=== PATIENT | female | born 1985 | race Caucasian/White ===

== ENCOUNTER → 2025-01-06 | Outpatient (CLI) | payer OTHER, SELFPAY ==
--- NOTE | 2025-01-06 18:11 | CT_ITS ---
PROCEDURE: ABDOMEN/PELVIS WITHOUT CONT 01/06/2025 REASON FOR EXAM: FLANK PAIN, STONE HISTORY Right flank pain. TECHNIQUE: Procedure Code: CTABDPEL Modality: CT Procedure: ABDOMEN/PELVIS WITHOUT CONT Noncontrast technique limits evaluation of the abdominal and pelvic viscera. Coronal and Sagittal reconstruction series were provided. One or more dose reduction techniques were used (e.g., Automated exposure control, adjustment of the mA and/or kV according to patient size, use of iterative reconstruction technique). RADIATION DOSE SUMMARY: CTDlvol: 6.04 mGy DLP: 291.44 mGycm COMPARISON: None FINDINGS: Lung bases: The lung bases are clear. Liver: Normal size. No obvious mass. Gallbladder: Unremarkable Spleen: Normal size. Pancreas: Normal size. No surrounding inflammation. Adrenals: Unremarkable Kidneys: 5 mm x 1 mm calculus in the lower pole calyx of the left kidney. Punctate calculus in the upper pole calyx of the left kidney. No evidence of hydronephrosis. Bladder: Unremarkable Reproductive Organs: Normal uterine size and contour. Ovaries are unremarkable. Bowel: Unremarkable Appendix: Unremarkable Lymph nodes: Unremarkable. Vasculature: The abdominal aorta and IVC contours are normal. Noncontrast technique limits evaluation. Peritoneum / Retroperitoneum: Unremarkable Bones: Unremarkable CT/Abdomen/Pelvis without Cont IMPRESSION: Tiny nonobstructive calculus in the lower pole of the left kidney as well as in the upper pole. No evidence of the ureteral obstruction at this time. Reading Location: [place] [id number]
--- OUTSIDE RECORDS SUMMARY | 2025-01-06 18:15 | XMS RPT_ITS | CCD ---
Author Organization [facility] CAR RECORD CLERK [facility] Care Team Providers Care Torch Operator Name Role Phone Unavailable Primary Care Provider Unavailabl e LISSA NAIK Attending Unavailable LISSA NAIK Admitting Unavailable APIRL SAMSON Attending Unavailable FELI HOWARD Admitting Unavailable YARELIS CHRISTOPHER Attending Unavailable EKMAN, YEIMY Referring Unavailable EKMAN, YEIMY Attending Unavailable EKMAN, YEIMY Referring Unavailable EKMAN, YEIMY Attending Unavailable EKMAN, YEIMY Attending Unavailable EKMAN, YEIMY Attending Unavailable EKMAN, YEIMY Attending Unavailable EKMAN, YEIMY Attending Unavailable EKMAN, YEIMY Attending Unavailable EKMAN, YEIMY Attending Unavailable EKMAN, YEIMY Attending Unavailable EKMAN, YEIMY Referring Unavailable EKMAN, YEIMY Attending Unavailable EKMAN, YEIMY Attending Unavailable EKMAN, YEIMY Referring Unavailable EKMAN, YEIMY Referring Unavailable EKMAN, YEIMY Referring Unavailable EKMAN, YEIMY Referring Unavailable EKMAN, YEIMY Attending Unavailable EKMAN, YEIMY Attending Unavailable Keke DEVLIN, Dr. Sanchez Attending Physician Dr. Marcello Mejia MD Primary Care Physician [phone] Dr. Marcello Mejia MD Referring Provider Marcello Mejia Referring Unavailable Marcello Mejia Primary Care Unavailable Laura Davies Attending Unavailable Tiara Sigala Attending Unavailabl e Allergies Allergy Classification Reported Allergen(s) Allergy Type Date of Onset Reaction(s) Facility (19 sources) Sulfonamides (Antibiotic); Translations: [SULFA (SULFONAMIDE ANTIBIOTICS)] Drug Allergy 8 Rash, Swelling [facility] (1 source) Sulfonamides (Antibiotic) Allergy to substance 5 facial swelling and rash [facility] (1 source) Sulfonamides (Antibiotic) Drug allergy (disorder) [facility] Repository Medications Current Medications Medication Drug Class(es) Dates Sig (Normalized) Sig (Original) Breast Pump (11 sources) Start: 12-25-2022 End: 12-25-2023 Breast Pump Double electric breast pump 1 Each 0 12/25/2022 12/25/2023 Active Comment on above: Double electric becca st pump pantoprazole 40 mg delayed release oral tablet (18 sources) Proton Pump Inhibitor Start: 12-23-2024 take 1 tablet by mouth once daily Pantoprazole 40 mg tablet,delayed release (DR/EC) Active 40 mg PO daily December 23, 2024 12:00am Complies with drug therapy Start: 12-31-2022 End: 05-01-2023 take 1 tablet by mouth once daily pantoprazole DR (PROTONIX) 20 mg tablet TAKE 1 TABLET BY MOUTH EVERY DAY 90 tablet 1 12/31/2022 05/01/2023 Discontinued Start: 12-01-2022 take 1 tablet by jose th once daily pantoprazole DR (PROTONIX) 20 mg tablet Take 1 tablet by mouth once daily. 30 tablet 2 12/04/2022 Active Start: 08-16-2022 End: 11-29-[address] (PROTONIX) 2 0 mg tablet Comment on above: Take 1 tablet by jose th once daily. TAKE 1 TABLET BY JOSE TH EVERY DAY Completed/Discontinued Medications Medication Drug Class(es) Dates Sig (Normalized) Sig (Original) ascorbic acid 250 mg oral tablet (10 sources) Vitamin C Start: 12-27-2022 End: 05-01-2023 take 1 tablet by mouth once daily ascorbic acid, vitamin C, (VITAMIN C) 250 mg tablet Take 1 tablet by mouth once daily. 100 tablet 1 12/27/2022 05/01/2023 Discontinued Comment on above: Take 1 tablet by jose th once daily. aspirin 81 mg delayed release oral tablet (16 sources) Platelet Aggregation Inhibitor, Nonsteroidal Anti-inflammatory Drug Start: 09-26-2022 take 1 tablet by mouth once daily aspirin, enteric coated (ECOTRIN LOW STRENGTH) 81 mg EC tablet Take 1 tablet by mouth once daily. 90 tablet 3 09/26/2022 Active Comment on above: Take 1 tablet by jose th once daily. ferrous sulfate 325 mg oral tablet (10 sources) Start: 12-27-2022 End: 05-01-2023 take 1 tablet by mouth twice daily ferrous sulfate (IRON) 325 mg (65 mg iron) tablet Take 1 tablet by mouth two times a day. 60 tablet 3 12/27/2022 05/01/2023 Discontinued Comment on above: Take 1 tablet by jose th two times a day. nitrofurantoin, macrocrystals 25 mg / nitrofurantoin, monohydrate 75 mg oral capsule (19 sources) Nitrofuran Antibacterial Start: 12-01-2022 End: 12-01-2022 nitrofurantoin monohydrate and macrocrystal (MACROBID) 100 mg capsule Take a single tablet following intercourse for prevention of urinary tract infection 30 capsule 2 12/01/2022 Active Start: 05-04-2022 End: 11-29-2022 nitrofurantoin monohydrate a nd macrocrystal (MACROBID) 100 mg capsule Take a single tablet following intercourse for prevention of urinary tract infection 0 05/04/2022 11/29/2022 Discontinued Comment on above: Take a single tablet following intercourse for prevention of urinary tract infection PNV no.95/ferrous fum/folic ac ( ORAL) (17 sources) PNV no.95/ferrou s fum/folic ac ( ORAL) Take by mouth. 0 Active Comment on above: Take by mouth. Problems Active Problems Problem Classification Problem Date Documented Da te Episodic/Chronic Calculus of urinary tract (2 sources) Kidney stone; Translations: [Calculus of kidney] Onset: 12-23-2024 12-23-2024 Episodic Early or threatened labor (8 sources) False labor before 37 completed weeks of gestation; Translations: [False labor before 37 completed weeks of gestation, third trimester] Onset: 01-26-2023 01-27-2023 Episodic Immunizations and screening for infectious disease (1 source) Needs influenza immunization; Translations: [Encounter for immunization] 12-25-2022 Episodic Other complications of (9 sources) Anemia of ; Translations: [Anemia complicating , third trimester] Onset: 01-15-2023 01-15-2023 Chronic Other complications of (1 source) Uterine size for dates discrepancy; Translations: [Uterine size-date discrepancy, third trimester] 01-29-2023 Episodic Other screening for suspected conditions (not mental disorders or infectious disease) (3 sources) Patient encounter status; Translations: [Encounter for other specified screening] 10-24-2022 Episodic Residual codes; unclassified (2 sources) Gestation period, 18 weeks; Translations: [18 weeks gestation of ] 10-24-2022 Episodic Residual codes; unclassified (1 source) Gestation period, 22 weeks; Translations: [22 weeks gestation of ] 11-19-2022 Episodic Residual codes; unclassified (1 source) Gestation period, 27 weeks; Translations: [27 weeks gestation of ] 12-25-2022 Episodic Residual codes; unclassified (5 sources) Gestation period, 32 weeks; Translations: [32 weeks gestation of ] Onset: 01-27-2023 01-29-2023 Episodic Residual codes; unclassified (1 source) Gestation period, 34 weeks; Translations: [34 weeks gestation of ] 02-12-2023 Episodic Residual codes; unclassified (1 source) Gestation period, 36 weeks; Translations: [36 weeks gestation of ] 02-26-2023 Episodic Residual codes; unclassified (1 source) 38 weeks gestation of ; Translations: [38 weeks gestation of ] Onset: 03-12-2023 Episodic Residual codes; unclassified (1 source) 36 weeks gestation of ; Translations: [36 weeks gestation of ] Onset: 02-26-2023 Episodic Residual codes; unclassified (1 source) 34 weeks gestation of ; Translations: [34 weeks gestation of ] Onset: 02-13-2023 Episodic Unclassified (1 source) Routine Onset: 05-01-2023 Past or Other Problems Problem Classification Problem Date Documented Da te Episodic/Chronic Other complications of (20 sources) High risk ; Translations: [Supervision of high risk , unspecified, second trimester] Onset: 09-26-2022 Episodic Other complications of (17 sources) Multigravida of advanced maternal age; Translations: [Supervision of elderly multigravida, second trimester] Onset: 09-26-2022 09-26-2022 Episodic Other complications of (2 sources) Supervision of high risk , unspecified, third trimester; Translations: [Supervision of high risk in third trimester] Onset: 01-29-2023 Episodic Other complications of (1 source) Supervision of high risk , unspecified, second trimester; Translations: [Supervision of high risk in second trimester] Onset: 09-26-2022 Episodic Residual codes; unclassified (1 source) 32 weeks gestation of ; Translations: [32 weeks gestation of ] Onset: 01-27-2023 Episodic Residual codes; unclassified (1 source) 22 weeks gestation of ; Translations: [22 weeks gestation of ] Onset: 12-25-2022 Episodic Residual codes; unclassified (1 source) 18 weeks gestation of ; Translations: [18 weeks gestation of ] Onset: 10-24-2022 Episodic Results Test Name Value Interpretation Reference Range Facil ity CNCOon 05-13-2023 CNCO Letter Text Normal [facility] HPV W/GENOTYPE THIN PREPon 0 05-01-2023 HPV 16 Ag Ql (Unsp spec) Negative Normal Negative for HPV DNA high risk type 16 by PCR [facility] Comment on above: Order Comment: Speci men Type: FLUID SPECIMEN Ordering Facility: [facility] Address: [address] [place] [address] Performed By: #### L [id number], HPVHRT #### [facility] CLIA [id number] [address] [place] [address] [place] HPV 18 Ag Ql (Unsp spec) Negative Normal Negative for HPV DNA high risk type 18 by PCR [facility] Comment on above: Order Comment: Speci men Type: FLUID SPECIMEN Ordering Facility: [facility] Address: [address] [place] [address] Performed By: #### L [id number], HPVHRT #### [facility] CLIA [id number] [address] [place] [address] [place] HPV 31+33+35+39+45+51+5 2+56+58+59+66+68 DNA DIGNA+probe Ql (Cvx) Negative for HPV DNA high risk types: 31,33,35,39,45,51,52, 56,58,59,66,68 by PCR. Normal Negative for HPV DNA high risk types: 31,33,35,39,45,51 ,52,56,58,59,66,6 8 by PCR. [facility] Comment on above: Order Comment: Speci men Type: FLUID SPECIMEN Ordering Facility: [facility] Address: [address] [place] [address] Performed By: #### L [id number], HPVHRT #### [facility] CLIA [id number] [address] [place] [address] [place] PAP TESTon 05-01-2023 ADEQUACY Satisfactory for interpretation Normal [facility] Comment on above: Order Comment: Speci men Type: FLUID SPECIMEN Ordering Facility: [facility] Address: [address] [place] [address] Performed By: #### L [id number], HPVHRT #### [facility] CLIA [id number] [address] [place] [address] [place] CASE REPORT Normal [facility] Comment on above: Order Comment: Speci men Type: FLUID SPECIMEN Ordering Facility: [facility] Address: [address] [place] [address] Result Comment: Gyne cologic Cytology Report Case: [id number] Authorizing Provider: Yeimy Sy MD Collected: 05/01/2023 11:09 AM Ordering Location: Obstetrics/Gynecology Received: 05/01/2023 04:17 PM First Screen: Mimi, Melina, CT, ASCP Specimen: Pap Test, ThinPrep, Cervix Performed By: #### L [id number], HPVHRT #### [facility] CLIA [id number] [address] [place] [address] [place] CLINICAL HISTORY, CYTOLOGY, CYBER DEFENSE INCIDENT RESPONDER Post (Indicate Weeks) Normal [facility] Comment on above: Order Comment: Speci men Type: FLUID SPECIMEN Ordering Facility: [facility] Address: [address] [place] [address] Performed By: #### L [id number], HPVHRT #### [facility] CLIA [id number] [address] [place] [address] [place] FINAL PERFORMING LAB Normal [facility] Comment on above: Order Comment: Speci men Type: FLUID SPECIMEN Ordering Facility: [facility] Address: [address] [place] [address] Result Comment: Tech nical component, electric razor assembler screening performed at [facility], [address] [place], [place] [id number] CLIA# [id number] Diagnostic interpretation performed at [facility], [address] [place], [place] [id number] CLIA# [id number] Research Microbiologist: Robert Hines M.D. Performed By: #### L [id number], HPVHRT #### [facility] CLIA [id number] [address] [place] [address] [place] HPV REFLEX Yes HPV Normal [facility] Comment on above: Order Comment: Speci men Type: FLUID SPECIMEN Ordering Facility: [facility] Address: [address] [place] [address] Performed By: #### L [id number], HPVHRT #### [facility] CLIA [id number] [address] [place] [address] [place] INTERPRETATION, CYTOLOGY, CYBER DEFENSE INCIDENT RESPONDER Normal [facility] Comment on above: Order Comment: Speci men Type: FLUID SPECIMEN Ordering Facility: [facility] Address: [address] [place] [address] Result Comment: Nega tive for intraepithelial lesion or malignancy. Performed By: #### L [id number], HPVHRT #### [facility] CLIA [id number] [address] [place] [address] [place] LMP 05/01/2023[breast feeding, no period Normal [facility] Comment on above: Order Comment: Speci men Type: FLUID SPECIMEN Ordering Facility: [facility] Address: [address] [place] [address] Performed By: #### L [id number], HPVHRT #### [facility] CLIA [id number] [address] [place] [address] [place] PAP DISCLAIMER COMMENT The Pap Smear is a screening test for cervical cancer. False negative results occur with all screening tests, emphasizing the need for rescreening at recommended intervals, and clinical correlation. Normal [facility] Comment on above: Order Comment: Speci men Type: FLUID SPECIMEN Ordering Facility: [facility] Address: [address] [place] [address] Performed By: #### L [id number], HPVHRT #### [facility] CLIA [id number] [address] [place] [address] [place] PAP PROGRAMMING ENGINEER COMMENT This specimen has been analyzed by the ThinPrep Imaging System, an automated imaging and review system, which assists the laboratory in evaluating cells on ThinPrep Pap tests. Following automated imaging, selected rivera from every slide are reviewed by a electric razor assembler. Normal [facility] Comment on above: Order Comment: Speci men Type: FLUID SPECIMEN Ordering Facility: [facility] Address: [address] [place] [address] Performed By: #### L [id number], HPVHRT #### [facility] CLIA [id number] [address] [place] [address] [place] ANES POSTPROC EVALon 023 ANES POSTPROC EVAL HNO ID: [id number] Author: Bhavana Vail MD Service: Anesthesiology Author Type: Anesthesiologist Type: Anesthesia Postprocedure Evaluation Filed: 03/24/2023 1:47 PM Note Text: POST ANESTHESIA EVALUATION NOTE : 1985 Procedure Summary Date: 03/23/23 Room / Location: Anesthesia Start: 2303 Anesthesia Stop: 2350 Procedure: LABOR ANALGESIA Diagnosis: Scheduled Providers: Responsible Provider: Ana Deshpande MD Anesthesia Type: epidural ASA Status: 2 Anesthesia Type: No value filed. Last Vitals BP 105/67 Pulse 85 Temp 36.7 ?C (98.1 ?F) (Oral) Resp 16 Ht 160 cm (5' 3") Wt 75.3 kg (166 lb) LMP 06/16/2022 SpO2 96% Unknown BMI 29.41 kg/m? Jerald Frias [[id number]] Baby Delivery: 03/23/2023 2350 Post Anesthesia Patient Status Neurological Status: aware and responsive. Pulmonary Status: breathing comfortably on room air Airway Control: returned to baseline unsupported. Cardiovascular Status: stable. Pain Management: clinically adequate Postoperative Hydration: acceptable. Intraoperative Events: no significant anesthesia events Recommendation: continue current plan of care. Anesthesia Observations No Documentation SIGNATURE: Bhavana Vail MD PATIENT NAME: Marina Frias DATE: March 24, 2023 TIME: 1:46 PM CSN: [id number] [facility] ANES PRE-OPon 03-24-2023 ANES PRE-OP HNO ID: [id number] Author: Bhavana Vail MD Service: Anesthesiology Author Type: Anesthesiologist Type: Anesthesia Preprocedure Evaluation Filed: 03/24/2023 1:47 PM Note Text: OB ANESTHESIA PRE-PROCEDURE ASSESSMENT PATIENT NAME: Marina Frias : 1985 Marina Frias is a 37 yo at 40w0d presenting for elective induction of labor. Denies history of Asthma or HTN. Denies PPH with first , Desires epidural. [facility] ANES INVESTIGATOR: Previous OB anesthetic: Epidural No OB anesthesia considerations No prior risk factors reported No current obstetric problems/important considerations GERD: GERD well controlled with no positional symptoms Relevant Problems No relevant active problems I - PHYSICAL EVALUATION AIRWAY Patient intubated: No. Tracheostomy tube not present Mallampati: III. TM distance: >3 FB. Neck ROM: full ROM without neurological symptoms. Mouth opening: adequate. Short neck: no. Thick neck: no Heredia present: no II - ANESTHESIA PLAN ASA Score: 2 Anesthetic Plan: epidural The patient is not a current smoker. Beta [place] Monitoring Plan Monitoring plan: standard ASA. Post Procedure Analgesic Plan Informed Consent Anesthetic risks, benefits, alternatives, personnel and consent discussed: yes. Patient / Responsible Republican agrees to proceed: yes Patient / Surrogate agrees to blood products: Yes EPIC CHART REVIEW: ACTIVE PROBLEM LIST Supervision of High Risk in Second Trimester [place] (Advanced Maternal Age) Multigravida 35+, Second Trimester Anemia During in Third Trimester Threatened Labor, Third Trimester and Not Yet Delivered in Third Trimester PAST MEDICAL HISTORY Diagnosis Date - Kidney stone 06/23/2020 - hemorrhage PAST SURGICAL HISTORY Procedure Laterality Date - VAGINOSCOPY FAMILY HISTORY Problem Relation Age of Onset - Hypertension Father - Hypertension Maternal Grandmother - Hypertension Maternal Grandfather - Skin Cancer Paternal Grandfather Social History Tobacco Use - Smoking status: Never - Smokeless tobacco: Never Substance Use Topics - Alcohol use: Not Currently - Drug use: Never pantoprazole DR (PROTONIX) 20 mg tablet, TAKE 1 TABLET BY MOUTH EVERY DAY, Disp: 90 tablet, Rfl: 1, 03/23/2023 ferrous sulfate (IRON) 325 mg (65 mg iron) tablet, Take 1 tablet by mouth two times a day., Disp: 60 tablet, Rfl: 3 ascorbic acid, vitamin C, (VITAMIN C) 250 mg tablet, Take 1 tablet by mouth once daily., Disp: 100 tablet, Rfl: 1 Breast Pump, Double electric breast pump, Disp: 1 Each, Rfl: 0 nitrofurantoin monohydrate and macrocrystal (MACROBID) 100 mg capsule, Take a single tablet following intercourse for prevention of urinary tract infection, Disp: 30 capsule, Rfl: 2 PNV no.95/ferrous fum/folic ac ( ORAL), Take by mouth., Disp: , Rfl: aspirin, enteric coated (ECOTRIN LOW STRENGTH) 81 mg EC tablet, Take 1 tablet by mouth once daily. (Patient not taking: Reported on 01/15/2023), Disp: 90 tablet, Rfl: 3 Inpatient medications reviewed in [facility] I have interviewed and examined the patient. I have reviewed the medical record and/or the pre-anesthesia evaluation, pertinent labs, and test results. This contains updated information obtained within 48 hours of Surgery/Procedure. SIGNATURE: BRIELLE Sanches PATIENT NAME: Marina Frias DATE: March 23, 2023 TIME: 11:00 PM : 1985 [facility] LD NOTEon 03-24-2023 LD NOTE HNO ID: [id number] Author: LISSA NAIK DO Service: Obstetrics Author Type: Physician Type: L&D Delivery Note Filed: 04/21/2023 19:14 Note Text: OBSTETRICS DELIVERY SUMMARY - VAGINAL DELIVERY Gestational Age at Delivery: 40w0d Service Date: 03/23/2023 Service Time: 12:19 AM on 03/24/2023 for completion of delivery documentation as noted below Labor Events Rupture Date: 03/23/2023 Rupture Time: 10:48 PM Total Time from ROM to Delivery: 1h 02m Rupture Type: SROM Fluid Color: Clear;Meconium Fluid Odor: Foul Odor Induction: Yes Induction Method: Oxytocin Kavin Jerald Marina [[id number]] Episiotomy/Laceration : Episiotomy: None Lacerations: Labial Labial Lacerations: Left Labial Repair Completed: No Date and Time of : Date of : 03/23/23 Time of : 2349 Delivery Information: Primary Reason for Delivery : Elective Induction Delivery type: Vaginal, Spontaneous Intrapartum Complications: None Delivery between 24 - 34 weeks?: No Shoulder Dystocia Present: No Vacuum Used: No Forceps Used: No Presentation AND Position Presentation: Vertex Position: CATALINO Cord: Complications: None Delayed Cord Clampin-60 sec Placenta: Removal: Spontaneous Appearance: Intact Anesthesia: Method: Epidural Measurements, Apgars: One Minute : 9 Five Minute : 9 Resuscitation Team Present: Yes Type of Resuscitation Team Needed: Planned Resuscitation Needed: No I/O Blood Loss per time range on right. 03/22/231999 - 03/24/23 0025 Calculated Blood Loss (mL) Hospital Encounter 150 Total 150 cc 37 year old 40w0d admitted for elective induction of labor, s/p uncomplicated spontaneous vaginal delivery. Found to be fully dilated with strong urge to push. Pushed 15 minutes to deliver a healthy boy infant in CATALINO position. Anterior shoulder delivered w/ ease, followed by body. Cord doubly clamped and cut after >30 second delay. Pitocin initiated. Cord blood gasses obtained per unit protocol. Placenta delivered with gentle cord traction, intact with 3VC. Vagina and perineum inspected and a small 1cm hemostatic left labial laceration was noted and not in need of repair. Uterine tone remained excellent throughout. A digital "sweep" of the vaginal canal was performed by Pedrito Petersen MD and it was ascertained that no instruments or other foreign bodies are retained within the cavity. Sponge, lap, and needle counts were correct times two. Mother and baby are stable and bonding and skin to skin. Baby is in mother's arms. Expected post-delivery care and anticipated transfer reviewed. Plan of care discussed with: Provider, RN, Patient. SIGNATURE: Pedrito Petersen MD PATIENT NAME: Marina Frias DATE: March 24, 2023 TIME: 12:19 AM Editing: My attest was removed when I was requested by billing to fix the date of service initially completed by the resident, which has not been fixed in bold as noted above. I, Dr. Naik was gowned/gloved and able to participate at any moment in the delivery. Lissy Petersen ([email or web address]) performed the delivery and repair as documented. 04/21/2023 7:02 PM Lissa Naik, DO Normal [facility] CBC W Auto Differential pane l (Bld)on 03-23-2023 Basophils (Bld) [#/Vol] 0.04 10*3/uL Normal <0.11 [facility] Comment on above: Order Comment: Speci men Type: BLOOD SPECIMEN Ordering Facility: [facility] Address: [address] [place] [address] Performed By: #### 5 7021-8 #### [facility] CLIA [id number] [address] [place] [address] [place] Basophils/100 WBC (Bld) 0.4 % Normal [facility] Comment on above: Order Comment: Speci men Type: BLOOD SPECIMEN Ordering Facility: [facility] Address: [address] [place] [address] Performed By: #### 5 7021-8 #### [facility] CLIA [id number] [address] [place] [address] [place] Differential cell count method Nom (Bld) Auto Normal [facility] Comment on above: Order Comment: Speci men Type: BLOOD SPECIMEN Ordering Facility: [facility] Address: [address] [place] [address] Performed By: #### 5 7021-8 #### [facility] CLIA [id number] [address] [place] [address] [place] Eosinophils (Bld) [#/Vol] 0.05 10*3/uL Normal <0.46 [facility] Comment on above: Order Comment: Speci men Type: BLOOD SPECIMEN Ordering Facility: [facility] Address: [address] [place] [address] Performed By: #### 5 7021-8 #### [facility] CLIA [id number] [address] [place] [address] [place] Eosinophils/100 WBC (Bld) 0.6 % Normal [facility] Comment on above: Order Comment: Speci men Type: BLOOD SPECIMEN Ordering Facility: [facility] Address: [address] [place] [address] Performed By: #### 5 7021-8 #### [facility] CLIA [id number] [address] [place] [address] [place] Erythrocyte distribution width (RBC) [Ratio] 13.2 % Normal 11.5-15.0 [facility] Comment on above: Order Comment: Speci men Type: BLOOD SPECIMEN Ordering Facility: [facility] Address: [address] [place] [address] Performed By: #### 5 7021-8 #### [facility] CLIA [id number] [address] [place] [address] [place] Hematocrit (Bld) [Volume fraction] 34.5 % Low 36.0-46.0 [facility] Comment on above: Order Comment: Speci men Type: BLOOD SPECIMEN Ordering Facility: [facility] Address: [address] [place] [address] Performed By: #### 5 7021-8 #### [facility] CLIA [id number] [address] [place] [address] [place] Hemoglobin (Bld) [Mass/Vol] 11.5 g/dL Normal 11.5-15.5 [facility] Comment on above: Order Comment: Speci men Type: BLOOD SPECIMEN Ordering Facility: [facility] Address: [address] [place] [address] Performed By: #### 5 7021-8 #### [facility] CLIA [id number] [address] [place] [address] [place] Immature granulocytes (Bld) [#/Vol] 0.03 10*3/uL Normal <0.10 [facility] Comment on above: Order Comment: Speci men Type: BLOOD SPECIMEN Ordering Facility: [facility] Address: [address] [place] [address] Performed By: #### 5 7021-8 #### [facility] CLIA [id number] [address] [place] [address] [place] Immature granulocytes/100 WBC (Bld) 0.3 % Normal [facility] Comment on above: Order Comment: Speci men Type: BLOOD SPECIMEN Ordering Facility: [facility] Address: [address] [place] [address] Performed By: #### 5 7021-8 #### [facility] CLIA [id number] [address] [place] [address] [place] Lymphocytes (Bld) [#/Vol] 3.25 10*3/uL Normal 1.00-4.00 [facility] Comment on above: Order Comment: Speci men Type: BLOOD SPECIMEN Ordering Facility: [facility] Address: [address] [place] [address] Performed By: #### 5 7021-8 #### [facility] CLIA [id number] [address] [place] [address] [place] Lymphocytes/100 WBC (Bld) 36.2 % Normal [facility] Comment on above: Order Comment: Speci men Type: BLOOD SPECIMEN Ordering Facility: [facility] Address: [address] [place] [address] Performed By: #### 5 7021-8 #### [facility] CLIA [id number] [address] [place] [address] [place] MCH (RBC) [Entitic mass] 30.8 pg Normal 26.0-34.0 [facility] Comment on above: Order Comment: Speci men Type: BLOOD SPECIMEN Ordering Facility: [facility] Address: [address] [place] [address] Performed By: #### 5 7021-8 #### [facility] CLIA [id number] [place] [address] [place] MCHC (RBC) [Mass/Vol] 33.3 g/dL Normal 30.5-36.0 [facility] Comment on above: Order Comment: Speci men Type: BLOOD SPECIMEN Ordering Facility: [facility] Address: [address] [place] [address] Performed By: #### 5 7021-8 #### [facility] CLIA [id number] [address] [place] [address] [place] MCV (RBC) [Entitic vol] 92.5 fL Normal 80.0-100.0 [facility] Comment on above: Order Comment: Speci men Type: BLOOD SPECIMEN Ordering Facility: [facility] Address: [address] [place] [address] Performed By: #### 5 7021-8 #### [facility] CLIA [id number] [address] [place] [address] [place] Monocytes (Bld) [#/Vol] 0.64 10*3/uL Normal <0.87 [facility] Comment on above: Order Comment: Speci men Type: BLOOD SPECIMEN Ordering Facility: [facility] Address: [address] [place] [address] Performed By: #### 5 7021-8 #### [facility] CLIA [id number] [address] [place] [address] [place] Monocytes/100 WBC (Bld) 7.1 % Normal [facility] Comment on above: Order Comment: Speci men Type: BLOOD SPECIMEN Ordering Facility: [facility] Address: [address] [place] [address] Performed By: #### 5 7021-8 #### [facility] CLIA [id number] [address] [place] [address] [place] Neutrophils (Bld) [#/Vol] 4.96 10*3/uL Normal 1.45-7.50 [facility] Comment on above: Order Comment: Speci men Type: BLOOD SPECIMEN Ordering Facility: [facility] Address: [address] [place] [address] Performed By: #### 5 7021-8 #### [facility] CLIA [id number] [address] [place] [address] [place] Neutrophils/100 WBC (Bld) 55.4 % Normal [facility] Comment on above: Order Comment: Speci men Type: BLOOD SPECIMEN Ordering Facility: [facility] Address: [address] [place] [address] Performed By: #### 5 7021-8 #### [facility] CLIA [id number] [place] [address] [place] Nucleated RBC (Bld) [#/Vol] 10*3/uL Normal <0.01 [facility] Comment on above: Order Comment: Speci men Type: BLOOD SPECIMEN Ordering Facility: [facility] Address: [address] [place] [address] Performed By: #### 5 7021-8 #### [facility] CLIA [id number] [address] [place] [address] [place] Nucleated RBC/100 WBC (Bld) [Ratio] 0.0 /100 WBC Normal [facility] Comment on above: Order Comment: Speci men Type: BLOOD SPECIMEN Ordering Facility: [facility] Address: [address] [place] [address] Performed By: #### 5 7021-8 #### [facility] CLIA [id number] [address] [place] [address] [place] Platelet mean volume (Bld) [Entitic vol] 9.7 fL Normal 9.0-12.7 [facility] Comment on above: Order Comment: Speci men Type: BLOOD SPECIMEN Ordering Facility: [facility] Address: [address] [place] [address] Performed By: #### 5 7021-8 #### [facility] CLIA [id number] [address] [place] [address] [place] Platelets (Bld) [#/Vol] 300 10*3/uL Normal 150-400 [facility] Comment on above: Order Comment: Speci men Type: BLOOD SPECIMEN Ordering Facility: [facility] Address: [address] [place] [address] Performed By: #### 5 7021-8 #### [facility] CLIA [id number] [address] [place] [address] [place] RBC (Bld) [#/Vol] 3.73 10*6/uL Low 3.90-5.20 [facility] Comment on above: Order Comment: Annita panda Type: BLOOD SPECIMEN Ordering Facility: [facility] Address: [address] [place] [address] Performed By: #### 5 7021-8 #### [facility] CLIA [id number] [address] [place] [address] [place] WBC (Bld) [#/Vol] 8.97 10*3/uL Normal 3.70-11.00 [facility] Comment on above: Order Comment: Annita panda Type: BLOOD SPECIMEN Ordering Facility: [facility] Address: [address] [place] [address] Performed By: #### 5 7021-8 #### [facility] CLIA [id number] [address] [place] [address] [place] HISTORY PHYSICALon HISTORY PHYSICAL HNO ID: [id number] Author: Pedrito Petersen MD Service: Obstetrics Author Type: Resident Type: HANDP Filed: 03/23/2023 9:13 PM Note Text: Attestation signed by Lissa Naik DO at 03/23/2023 9:28 PM I saw and evaluated the patient. Discussed with the resident and agree with resident's findings and plan as documented in the resident's note. 03/23/2023 9:28 PM Lissa Naik DO SERVICE DATE: 03/23/2023 SERVICE TIME: 8:34 PM PHYSICAL EXAM MUST BE COMPLETED ON ADMISSION The History and Physical (completed in the past 30 days) has been reviewed and the patient has been examined. The contents accurately reflect the patient's condition with the following additions or revisions since the HANDP was completed. POST DELIVERY CONTRACEPTION: Discussed post-delivery contraception options. Patient received written information about post-delivery contraception options. Patient does not desire post-delivery contraception. Examination indicates no changes. Current OB/Cervical examination indicates: Dilation: 3 (03/23/232052 : Alida Blackburn, RN) cm Station: -2 (03/23/232052 : Alida Blackburn, RN) Effacement: 80 (03/23/232052 : Alida Blackburn, RN) % Pelvimetry: Pelvimetry clinically assessed as adequate Presentation: vertex EFW: 8lbs based on clinical assessment. Onset of Labor Date: 03/22/23 Onset of Labor Time: 1999 Membrane Status: Intact ASSESSMENT/PLAN Marina Frias is a 37 yo at 40w0d presenting for elective induction of labor. IOL - SVE: /-2 - Membranes: intact - Jovon q3-5 minutes - NST reactive - GBS negative - EFW 8# by clinical assessment - Presentation vertex confirmed by BSUS - Admission Hg pending - BMI 29.4 - PP contraception: declines LARC - labs reviewed: RI, Rh+, HIV neg, Hep B AND Hep C neg, 3rd trimester syphilis neg, GC neg. 1hr gtt wnl Anemia - Hgb 11.1 on 01/26, on oral iron TID during third trimester, admit Hgb pending PMH: Denies HTN or asthma PSH: colposcopy OBHx: G1 with term uncomplicated , pelvis proven to 7lbs 14 oz. No Hx of shoulder dystocia or PPH AMA - [id number] wnl Plan: Admit to [facility] for IOL. Cervix favorable, will start with pitocin Current OB plan: Proceed with Induction: oxytocin (Pitocin). Plan of care discussed with: Provider, RN, Patient. This HANDP can be found in the Electronic Medical Record dated 03/05/2023. SIGNATURE: Pedrito Petersen MD PATIENT NAME: Marina Frias DATE: 03/23/2023 TIME: 8:34 PM Normal [facility] TYPE + SCREEN PRENATALon ABO AB Normal [facility] Comment on above: Order Comment: Speci men Type: BLOOD SPECIMENOrdering Facility: [facility] Address: [address] [place] [address] Performed By: #### T SPN ####[facility] [id number] [address] HISTORICAL AB SCR STATUS Negative [facility] Comment on above: Order Comment: Speci men Type: BLOOD SPECIMENOrdering Facility: [facility] Address: [address] [place] [address] Performed By: #### T SPN ####[facility] [id number] [address] Rh Nom (Bld) Positive [facility] Comment on above: Order Comment: Speci men Type: BLOOD SPECIMENOrdering Facility: [facility] Address: [address] [place] [address] Performed By: #### T SPN ####[facility] [id number] [address] TYPE AND SCREEN EXPIRATION 03/26/2023 23:59 [facility] Comment on above: Order Comment: Speci men Type: BLOOD SPECIMENOrdering Facility: [facility] Address: [address] [place] [address] Performed By: #### T SPN ####[facility] [id number] [address] [place] HISTORY PHYSICALon HISTORY PHYSICAL HNO ID: [id number] Author: Yeimy Sy MD Service: ? Author Type: Physician Type: HANDP Filed: 03/05/2023 1:22 PM Note Text: OBSTETRICS HISTORY AND PHYSICAL NAME: Marina Frias SERVICE DATE: March 05, 2023 SERVICE TIME: 1:14 PM ASSESSMENT AND PLAN: 37 year old EGA:37w3d. Plan for delivery in <30 days. POST DELIVERY CONTRACEPTION: Discussed post-delivery contraception options. Patient received written information about post-delivery contraception options. Patient does not desire post-delivery contraception. SUBJECTIVE: CHIEF COMPLAINT: routine ob visit. HISTORY OF THE PRESENT ILLNESS: The patient is a 37 year old female, , who is at 37w3d with an SEUN of 03/23/2023, by Last Menstrual Period dating method. Patient has Good movement. Denies vaginal bleeding., Denies contractions., Denies leaking of fluid. . Patient is GBS Negative. Her has been complicated by the following issues: Active Non-Hospital Problems Diagnosis Date Noted Threatened labor, third trimester 01/26/2023 Overview Note: Fingertip, no cervical change and contractions stopped Anemia during in third trimester 01/15/2023 Overview Note: On iron. Supervision of high risk in second trimester 09/26/2022 Overview Note: TF from [place]. Did , normal and did not to an NT. AMA (advanced maternal age) multigravida 37+, second trimester 09/26/2022 Overview Note: [id number] wnl. Did not do the NT. ANESTHESIA COMPLICATIONS: None HISTORY REVIEW PAST MEDICAL HISTORY Diagnosis Date Kidney stone 06/23/2020 hemorrhage PAST SURGICAL HISTORY Procedure Laterality Date VAGINOSCOPY FAMILY HISTORY Problem Relation Age of Onset Hypertension Father Hypertension Maternal Grandmother Hypertension Maternal Grandfather Skin Cancer Paternal Grandfather Social History Tobacco Use Smoking status: Never Smokeless tobacco: Never Substance Use Topics Alcohol use: Not Currently Drug use: Never Obstetric History T1 L1 SAB0 IAB0 Ectopic0 Multiple0 Live Births1 Comment: 39w5d boy 7#15oz pt had PTL and was montiroed and give betamethasone but not treated with anything to stop labor. Was monitored in clinic, not sent to hospital. Name of Baby 1: SALVADOR FRIAS Date: 02/07/21 GA: 39w5d Delivery: Vaginal, Spontaneous Apgar1: 8 Apgar5: 9 Living: Living Name of Baby 2: Not recorded Date: Not recorded GA: Not recorded Delivery: Not recorded Apgar1: Not recorded Apgar5: Not recorded Living: Not recorded ALLERGIES: ALLERGIES Allergen Reactions Sulfa (Sulfonamide * Rash, Swelling RASH/FACIAL SWELLING PRIOR TO ADMISSION MEDICATIONS: Prior to Admission medications as of 03/05/23 1313 Medication Sig Last Dose Taking pantoprazole DR (PROTONIX) 20 mg tablet TAKE 1 TABLET BY MOUTH EVERY DAY Taking Yes ferrous sulfate (IRON) 325 mg (65 mg iron) tablet Take 1 tablet by mouth two times a day. Taking Yes ascorbic acid, vitamin C, (VITAMIN C) 250 mg tablet Take 1 tablet by mouth once daily. Taking Yes Breast Pump Double electric breast pump Taking Yes nitrofurantoin monohydrate and macrocrystal (MACROBID) 100 mg capsule Take a single tablet following intercourse for prevention of urinary tract infection Taking Yes PNV no.95/ferrous fum/folic ac ( ORAL) Take by mouth. Taking Yes aspirin, enteric coated (ECOTRIN LOW STRENGTH) 81 mg EC tablet Take 1 tablet by mouth once daily. Patient not taking: Reported on 01/15/2023 No medication comments found. REVIEW OF SYSTEMS: The remainder of the review of systems is negative. OBJECTIVE: PHYSICAL EXAM: General: WD, WN HEENT: NC/AT, sclera white, pupils equal, no thyromegaly Abdomen: soft, nontender, no masses Uterus: soft, NT Extremities: 1+ edema DTRs: 2+ Pelvimetry: Pelvimetry clinically assessed as adequate LAST VITALS: BP 114/66 Pulse 92 Wt 161 lb (73 kg) LMP 06/16/2022 BMI 28.52 kg/m? Heart Rate: 130 LABS Diagnostic tests reviewed for today's visit: Most recent labs and imaging results. Maternal Results (In Last 9 Months): Hemoglobin (g/dL) Date/Time Value 01/26/2023 1838 11.1 (L) 12/25/2022 1014 10.8 (L) Hematocrit (%) Date/Time Value 01/26/2023 1838 33.1 (L) 12/25/2022 1014 33.0 (L) Platelet Count (k/uL) Date/Time Value 01/26/2023 1838 260 12/25/2022 1014 311 ABO (no units) Date/Time Value 01/26/2023 1838 AB Rh(D) (no units) Date/Time Value 01/26/2023 1838 Positive Group B Strep PCR (no units) Date/Time Value 02/26/2023 1337 Negative for Group B Streptococcus by PCR. HBsAg (no units) Date/Time Value 12/25/2022 1014 Negative HIV 12 Combo (Ag/Ab) (no units) Date/Time Value 12/25/2022 1014 Nonreactive Neisseria gonorrhoeae (GC) (no units) Date/Time Value 01/26/2023 1837 Negative for Neisseria gonorrhoeae by amplification Sy (more content not included)... Normal [facility] ROUTINE, GROUP B ST REP PCRon 02-26-2023 ROUTINE, GROUP B STREP PCR GROUP B STREP PCR: Negative for Group B Streptococcus by PCR. Normal [facility] Comment on above: Performed By: #### R UBIGG #### [facility] CLIA [id number] [address] [place] [address] [place] URINE OB DIP B/Oon 3 Glucose Ql (U) Negative Neg mg/dL [facility] Protein.monoclonal (U) [Mass/Vol] Negative Neg mg/dL [facility] OBSTETRIC ULTRASOUND WHIon 1 03-31-2022 [facility] CONSULTon 01-27-2023 CONSULT HNO ID: [id number] Author: Satnam Tineo MD Service: Maternal Medicine Author Type: Resident Type: Consults Filed: 01/27/2023 7:32 AM Note Text: Attestation signed by Feli Howard MD at 01/27/2023 9:06 AM Maternal- Medicine Staff Note I saw and evaluated the patient. I personally obtained the garcia and critical portions of the history and physical exam. I reviewed the resident?s documentation and discussed the patient with the resident. I agree with the resident. I agree with the resident?s medical decision making as documented in the resident?s note. Patient is a 37 year old at 32 weeks admitted yesterday for threatened labor. Had regular painful contractions. Cervix 0.5cm dilated. Visible contractions on toco. Reassuring heart rate monitoring No signs of abruption or infection. Contractions stopped overnight. Will discharge home, she is aware of reasons to return. Follow up ob visit planned in two days. Consult requested by Dr. Samson and plan discussed and in shared emr. Feli Howard MD OBSTETRICS MATERNAL MEDICINE CONSULT SERVICE DATE: January 27, 2023 SERVICE TIME: 6:33 AM REQUESTING PROVIDER: April Samson MD Subjective HISTORY OF THE PRESENT ILLNESS: The patient is a 37 year old female, , who is at 32w1d with an SEUN of 03/23/2023, by Last Menstrual Period dating method. Patient is here admitted for tPTL. Patient is a [employer] nurse. She presented for q2-3min contractions that started in the afternoon. She was checked on admission and found to be closed. She received fluids with no improvement in contractions but did not make cervical change. She was admitted for obs. is medically uncomplicated. Has a history of arrested labor in G1 however delivered at term. HISTORY REVIEW PAST MEDICAL HISTORY Diagnosis Date Kidney stone 06/23/2020 PAST SURGICAL HISTORY Procedure Laterality Date VAGINOSCOPY FAMILY HISTORY Problem Relation Age of Onset Hypertension Father Hypertension Maternal Grandmother Hypertension Maternal Grandfather Skin Cancer Paternal Grandfather Social History Tobacco Use Smoking status: Never Smokeless tobacco: Never Substance Use Topics Alcohol use: Not Currently Drug use: Never Obstetric History T1 L1 SAB0 IAB0 Ectopic0 Multiple0 Live Births1 Comment: 39w5d boy 7#15oz pt had PTL and was montiroed and give betamethasone but not treated with anything to stop labor. Was monitored in clinic, not sent to hospital. Name of Baby 1: SALVADOR FRIAS Date: 11/16/21 GA: 39w5d Delivery: Vaginal, Spontaneous Apgar1: 8 Apgar5: 9 Living: Living Name of Baby 2: Not recorded Date: Not recorded GA: Not recorded Delivery: Not recorded Apgar1: Not recorded Apgar5: Not recorded Living: Not recorded Active Non-Hospital Problems Diagnosis Date Noted Anemia during in third trimester 01/15/2023 Overview Note: On iron. Supervision of high risk in second trimester 09/26/2022 Overview Note: TF from [place]. Did [id number], normal and did not to an NT. AMA (advanced maternal age) multigravida 37+, second trimester 09/26/2022 Overview Note: [id number] wnl. Did not do the NT. ALLERGIES Allergen Reactions Sulfa (Sulfonamide * Rash, Swelling RASH/FACIAL SWELLING PRIOR TO ADMISSION MEDICATIONS: Prior to Admission Medications Prescriptions Last Dose Informant Patient Reported? Taking? Breast Pump No No Sig: Double electric breast pump PNV no.95/ferrous fum/folic ac ( ORAL) 01/26/2023 Yes Yes Sig: Take by mouth. ascorbic acid, vitamin C, (VITAMIN C) 250 mg tablet No No Sig: Take 1 tablet by mouth once daily. aspirin, enteric coated (ECOTRIN LOW STRENGTH) 81 mg EC tablet No No Sig: Take 1 tablet by mouth once daily. Patient not taking: Reported on 01/15/2023 ferrous sulfate (IRON) 325 mg (65 mg iron) tablet No No Sig: Take 1 tablet by mouth two times a day. nitrofurantoin monohydrate and macrocrystal (MACROBID) 100 mg capsule No No Sig: Take a single tablet following intercourse for prevention of urinary tract infection pantoprazole DR (PROTONIX) 20 mg tablet 01/26/2023 No Yes Sig: TAKE 1 TABLET BY MOUTH EVERY DAY Facility-Administered Medications: None REVIEW OF SYSTEMS: The remainder of the review of systems is negative. Objective LAST VITALS: Pulse BP Resp O2 Sat Temp Pain 85 89/54 18 100 % 36.9 ?C (98.4 ?F) 0 HT/WT/BMI: Height Weight BMI 160 cm (5' 3") 71.2 kg (157 lb) 27.81 PHYSICAL EXAM: General: WD, WN Abdomen: soft, nontender Uterus: soft, NT Extremities: no edema CERVICAL EXAM: Dilation: Fingertip (01/26/23 2030 : Windy Palmer, RN) cm Station: -3 (01/26/232029 : Windy Palmer, RN) Effacement: (more content not included)... Normal [facility] NURSING PROGon 01-27-2023 NURSING PROG HNO ID: [id number] Author: Lora Whyte, DOMINGUEZ Service: Obstetrics Author Type: Registered Nurse Type: Nursing Progress Note Filed: 01/27/2023 10:45 AM Note Text: pt. discharged via wheelchir in stable condition. denies any pain , contractions or bleeding. follow appt. scheduled this week. discharge instructions given, all questions and concerns addressed. agrees with home going poc. stable. [facility] BACTERIAL VAGINOSIS NAATon 1 03-28-2022 Lactobacillus crispatus+gasseri+j ensenii + Gardnerella vaginalis + Atopobium vaginae rRNA DIGNA+probe Ql (Vag fld) Negative Normal Negative for bacterial vaginosis [facility] Comment on above: Order Comment: Speci men Type: SWAB Ordering Facility[facility] Address: [address] [place] [address] Performed By: #### 3 6902-5, BVAMP #### [facility] CLIA [id number] [address] [place] [address] [place] Bacteria Ur Culton Bacteria identified Cx Nom (U) CULTURE, URINE: No growth (<1,000 CFU/ml) [facility] Comment on above: Performed By: #### 6 30-4 #### [facility] CLIA [id number] [address] [place] [address] [place] C. trachomatis+N. gonorrhoea e DNA DIGNA+probe Ql (Unsp spec)on 01-26-2023 C. trachomatis rRNA DIGNA+probe Ql (Unsp spec) Negative Normal Negative for Chlamydia trachomatis by amplificaton [facility] Comment on above: Order Comment: Speci men Type: SWAB Ordering Facility: [facility] Address: [address] [place] [address] Performed By: #### 3 6902-5, BVAMP #### [facility] CLIA [id number] [address] [place] [address] [place] N. gonorrhoeae rRNA DIGNA+probe Ql (Unsp spec) Negative Normal Negative for Neisseria gonorrhoeae by amplification [facility] Comment on above: Order Comment: Speci men Type: SWAB Ordering Facility: [facility] Address: [address] [place] [address] Performed By: #### 3 6902-5, BVAMP #### [facility] CLIA [id number] [address] [place] [address] [place] SHARAD/TRICHOMONAS NAATon 1 03-28-2022 C. glabrata RNA DIGNA+probe Ql (Vag fld) Negative Normal Negative for Sharad glabrata [facility] Comment on above: Order Comment: Speci men Type: SWAB Order[facility] Facility[facility] Address: [address] [place] [address] Performed By: #### C VTV #### [facility] CLIA [id number] [address] [place] [address] [place] Sharad sp DNA DIGNA+probe Ql (Vag fld) Negative Normal Negative for Sharad species [facility] Comment on above: Order Comment: Speci men Type: SWAB [facility] Facility[facility] Address: [address] [place] [address] Performed By: #### C VTV #### [facility] CLIA [id number] [address] [place] [address] [place] T. vaginalis DNA DIGNA+probe Ql (Unsp spec) Negative Normal Negative for Trichomonas vaginalis by amplification [facility] Comment on above: Order Comment: Speci men Type: SWAB Order[facility] Facility[facility] Address: [address] [place] [address] Performed By: #### C VTV #### [facility] CLIA [id number] [facility] [place] [address] [place] CBC panel Auto (Bld)on 11-04 -2023 Erythrocyte distribution width (RBC) [Ratio] 13.8 % Normal 11.5-15.0 [facility] Comment on above: Order Comment: Speci men Type: BLOOD SPECIMEN Ordering Facility: [facility] Address: [address] [place] [address] Performed By: #### 5 8410-2 #### [facility] CLIA [id number] [address] [place] [address] [place] Hematocrit (Bld) [Volume fraction] 33.1 % Low 36.0-46.0 [facility] Comment on above: Order Comment: Speci men Type: BLOOD SPECIMEN Ordering Facility: [facility] Address: [address] [place] [address] Performed By: #### 5 8410-2 #### [facility] CLIA [id number] [address] [place] [address] [place] Hemoglobin (Bld) [Mass/Vol] 11.1 g/dL Low 11.5-15.5 [facility] Comment on above: Order Comment: Speci men Type: BLOOD SPECIMEN Ordering Facility: [facility] Address: [address] [place] [address] Performed By: #### 5 8410-2 #### [facility] CLIA [id number] [address] [place] [address] [place] MCH (RBC) [Entitic mass] 31.8 pg Normal 26.0-34.0 [facility] Comment on above: Order Comment: Speci men Type: BLOOD SPECIMEN Ordering Facility: [facility] Address: [address] [place] [address] Performed By: #### 5 8410-2 #### [facility] CLIA [id number] [address] [place] [address] [place] MCHC (RBC) [Mass/Vol] 33.5 g/dL Normal 30.5-36.0 [facility] Comment on above: Order Comment: Speci men Type: BLOOD SPECIMEN Ordering Facility: [facility] Address: [address] [place] [address] Performed By: #### 5 8410-2 #### [facility] CLIA [id number] [address] [place] [address] [place] MCV (RBC) [Entitic vol] 94.8 fL Normal 80.0-100.0 [facility] Comment on above: Order Comment: Speci men Type: BLOOD SPECIMEN Ordering Facility: [facility] Address: [address] [place] [address] Performed By: #### 5 8410-2 #### [facility] CLIA [id number] [address] [place] [address] [place] Nucleated RBC (Bld) [#/Vol] 10*3/uL Normal <0.01 [facility] Comment on above: Order Comment: Speci men Type: BLOOD SPECIMEN Ordering Facility: [facility] Address: [address] [place] [address] Performed By: #### 5 8410-2 #### [facility] CLIA [id number] [address] [place] [address] [place] Platelet mean volume (Bld) [Entitic vol] 9.0 fL Normal 9.0-12.7 [facility] Comment on above: Order Comment: Speci men Type: BLOOD SPECIMEN Ordering Facility: [facility] Address: [address] [place] [address] Performed By: #### 5 8410-2 #### [facility] CLIA [id number] [address] [place] [address] [place] Platelets (Bld) [#/Vol] 260 10*3/uL Normal 150-400 [facility] Comment on above: Order Comment: Speci men Type: BLOOD SPECIMEN Ordering Facility: [facility] Address: [address] [place] [address] Performed By: #### 5 8410-2 #### [facility] CLIA [id number] [address] [place] [address] [place] RBC (Bld) [#/Vol] 3.49 10*6/uL Low 3.90-5.20 [facility] Comment on above: Order Comment: Speci men Type: BLOOD SPECIMEN Ordering Facility: [facility] Address: [address] [place] [address] Performed By: #### 5 8410-2 #### [facility] CLIA [id number] [address] [place] [address] [place] WBC (Bld) [#/Vol] 8.16 10*3/uL Normal 3.70-11.00 [facility] Comment on above: Order Comment: Annita panda Type: BLOOD SPECIMEN Ordering Facility: [facility] Address: [facility] [place] [address] Performed By: #### 5 8410-2 #### [facility] CLIA [id number] [address] [place] [address] [place] HISTORY PHYSICALon HISTORY PHYSICAL HNO ID: [id number] Author: Evelia Robert MD Service: Obstetrics Author Type: Resident Type: HANDP Filed: 01/26/2023 10:00 PM Note Text: Attestation signed by April Samson MD at 01/26/2023 11:48 PM Attending Note I evaluated the patient and personally participated in the garcia components. I agree with the resident's findings and plan as documented and have discussed the case and management of the patient's care with the resident. Plan of care discussed with: Provider, RN, Patient. Signature: April Samson MD Date: January 26, 2023 Time: 11:48 PM OBSTETRICS HISTORY AND PHYSICAL SERVICE DATE: January 26, 2023 SERVICE TIME: 6:41 PM Subjective Patient's stated reason for arrival: I have contractions every day but they are really bad today" CHIEF COMPLAINT: contractions HISTORY OF THE PRESENT ILLNESS: The patient is a 37 year old female, , who is at 32w0d with an SEUN of 03/23/2023, by Last Menstrual Period dating method. Patient is here with contractions every few minutes since this afternoon. Good movement. Denies vaginal bleeding., Denies leaking of fluid. No UTI symptoms, vaginal discharge, vaginal pruritis. is medically uncomplicated. Has a history of arrested labor in G1 however delivered at term. POST DELIVERY CONTRACEPTION: Discussed post-delivery contraception options. Patient received written information about post-delivery contraception options. Patient does not desire post-delivery contraception. HISTORY REVIEW PAST MEDICAL HISTORY Diagnosis Date Kidney stone 06/23/2020 PAST SURGICAL HISTORY Procedure Laterality Date VAGINOSCOPY FAMILY HISTORY Problem Relation Age of Onset Hypertension Father Hypertension Maternal Grandmother Hypertension Maternal Grandfather Skin Cancer Paternal Grandfather Social History Tobacco Use Smoking status: Never Smokeless tobacco: Never Substance Use Topics Alcohol use: Not Currently Drug use: Never Obstetric History T1 L1 SAB0 IAB0 Ectopic0 Multiple0 Live Births0 Comment: 39w5d boy 7#15oz pt had PTL and was montiroed and give betamethasone but not treated with anything to stop labor. Was monitored in clinic, not sent to hospital. Name of Baby 1: Not recorded Date: Not recorded GA: Not recorded Delivery: Not recorded Apgar1: Not recorded Apgar5: Not recorded Living: Not recorded Name of Baby 2: Not recorded Date: Not recorded GA: Not recorded Delivery: Not recorded Apgar1: Not recorded Apgar5: Not recorded Living: Not recorded Active Non-Hospital Problems Diagnosis Date Noted Anemia during in third trimester 01/15/2023 Overview Note: On iron. Supervision of high risk in second trimester 09/26/2022 Overview Note: TF from [place]. Did kwziyfy90, normal and did not to an NT. AMA (advanced maternal age) multigravida 37+, second trimester 09/26/2022 Overview Note: [id number] wnl. Did not do the NT. ALLERGIES Allergen Reactions Sulfa (Sulfonamide * Rash, Swelling RASH/FACIAL SWELLING Prior to Admission Medications Prescriptions Last Dose Informant Patient Reported? Taking? Breast Pump No No Sig: Double electric breast pump PNV no.95/ferrous fum/folic ac ( ORAL) 01/26/2023 Yes Yes Sig: Take by mouth. ascorbic acid, vitamin C, (VITAMIN C) 250 mg tablet No No Sig: Take 1 tablet by mouth once daily. aspirin, enteric coated (ECOTRIN LOW STRENGTH) 81 mg EC tablet No No Sig: Take 1 tablet by mouth once daily. Patient not taking: Reported on 01/15/2023 ferrous sulfate (IRON) 325 mg (65 mg iron) tablet No No Sig: Take 1 tablet by mouth two times a day. nitrofurantoin monohydrate and macrocrystal (MACROBID) 100 mg capsule No No Sig: Take a single tablet following intercourse for prevention of urinary tract infection pantoprazole DR (PROTONIX) 20 mg tablet 01/26/2023 No Yes Sig: TAKE 1 TABLET BY MOUTH EVERY DAY Facility-Administered Medications: None REVIEW OF SYSTEMS: The remainder of the review of systems is negative. Objective LAST VITALS: Pulse BP Resp O2 Sat Temp Pain 89 118/76 14 100 % 36.8 ?C (98.2 ?F) 2 HT/WT/BMI: Height Weight BMI 160 cm (5' 3") 71.2 kg (157 lb) 27.81 PHYSICAL EXAM: General: WD, WN, comfortable HEENT: NC/AT, sclera white Lungs: normal respiratory effort Heart: RR Abdomen: soft, nontender Uterus: soft, NT Extremities: DTRs: FHT: 135 bpm (01/26/231819 : Taty Pascal, DOMINGUEZ) bpm St Spec Exam: (not done) CERVICAL EXAM: Dilation: Fingertip (01/26/231820 : Taty Pascal, DOMINGUEZ) cm Station: -3 (01/26/231820 : Taty Pascal, DOMINGUEZ) Effacement: 40 (01/26/231820 : Taty Pascal, DOMINGUEZ) % Position: Presentation: cephalic Pelvimetry: Pelvimetry clinically assessed as adequate MO (more content not included)... Normal [facility] ROUTINE, GROUP B ST REP PCRon 01-26-2023 ROUTINE, GROUP B STREP PCR GROUP B STREP PCR: Negative for Group B Streptococcus by PCR. Normal [facility] Comment on above: Performed By: #### G BPCR ####[facility] [id number] [facility] [id number] [id number] [place] TYPE + SCREEN PRENATALon ABO AB Normal [facility] Comment on above: Order Comment: Speci men Type: BLOOD SPECIMENOrdering Facility: [facility] Address: [address] [place] [address] Performed By: #### T SPN ####[facility] [id number] [place] [id number] [place] HISTORICAL AB SCR STATUS Negative [facility] Comment on above: Order Comment: Speci men Type: BLOOD SPECIMENOrdering Facility: [facility] Address: [address] [place] [address] Performed By: #### T SPN ####[facility] [id number] [place] [address] [place] Rh Nom (Bld) Positive Normal [facility] Comment on above: Order Comment: Speci men Type: BLOOD SPECIMENOrdering Facility: [facility] Address: [address] [place] [address] Performed By: #### T SPN ####[facility] [id number] [place] [address] [place] TYPE AND SCREEN EXPIRATION 01/29/2023 23:59 Normal [facility] Comment on above: Order Comment: Speci men Type: BLOOD SPECIMENOrdering Facility: [facility] Address: [address] [place] [address] Performed By: #### T SPN ####[facility] [id number] [place] [address] [place] URINALYSIS, REFLEX MICROSCOP ICon 01-26-2023 Bilirubin Ql (U) Negative Normal Negative [facility] Comment on above: Order Comment: Speci men Type: URINE SPECIMEN [facility] Address: [address] [place] [address] Performed By: #### L [id number] #### [facility] CLIA [id number] [address] [place] [address] [place] Clarity (Unsp spec) Clear Normal Clear [facility] Comment on above: Order Comment: Speci men Type: URINE SPECIMEN Ordering [facility] Address: [address] [place] [address] Performed By: #### L [id number] #### [facility] CLIA [id number] [address] [place] [address] [place] Color (U) Light Yellow Normal Yellow [facility] Comment on above: Order Comment: Speci men Type: URINE SPECIMEN Ordering Facility: [facility] Address: [address] [place] [address] Performed By: #### L [id number] #### [facility] CLIA [id number] [address] [place] [address] [place] Glucose Test strip (U) [Mass/Vol] Negative Normal Trace, Negative [facility] Comment on above: Order Comment: Speci men Type: URINE SPECIMEN Ordering Facility[facility] Address: [address] [place] [address] Performed By: #### L [id number] #### [facility] CLIA [id number] [address] [place] [address] [place] Hemoglobin Ql (U) Negative Normal Negative, Trace Fa [facility] Comment on above: Order Comment: Speci men Type: URINE SPECIMEN Order[facility] Address: [address] [place] [address] Performed By: #### L [id number] #### [facility] CLIA [id number] [address] [place] [address] [place] Ketones Ql (U) Negative Normal Negative, Trace [facility] Comment on above: Order Comment: Speci men Type: URINE SPECIMEN Order[facility] Address: [address] [place] [address] Performed By: #### L [id number] #### [facility] CLIA [id number] [address] [place] [address] [place] Leukocyte esterase Test strip Ql (U) Negative Normal Negative, 25 Clementine/uL [facility] Comment on above: Order Comment: Speci men Type: URINE SPECIMEN [facility] Address: [address] [place] [address] Performed By: #### L [id number] #### [facility] CLIA [id number] [address] [place] [address] [place] Nitrite Ql (U) Negative Normal Negative [facility] Comment on above: Order Comment: Speci men Type: URINE SPECIMEN Order[facility] Address: [address] [place] [address] Performed By: #### L [id number] #### [facility] CLIA [id number] [address] [place] [address] [place] pH (U) 6.5 [pH] Normal 5.0-8.0 [facility] Comment on above: Order Comment: Speci men Type: URINE SPECIMEN [facility] Address: [address] [place] [address] Performed By: #### L [id number] #### [facility] CLIA [id number] [address] [place] [address] [place] Protein (U) [Mass/Vol] Negative Normal Trace, Negative [facility] Comment on above: Order Comment: Speci men Type: URINE SPECIMEN [facility] Address: [address] [place] [address] Performed By: #### L [id number] #### [facility] CLIA [id number] [address] [place] [address] [place] Specific gravity (U) [Rel density] 1.012 Normal 1.005-1.030 [facility] Comment on above: Order Comment: Speci men Type: URINE SPECIMEN Order[facility] Address: [address] [place] [address] Performed By: #### L [id number] #### [facility] CLIA [id number] [address] [place] [address] [place] Urobilinogen Ql (U) Negative Normal Negative [facility] Comment on above: Order Comment: Speci men Type: URINE SPECIMEN Order[facility] Address: [address] [place] [address] Performed By: #### L [id number] #### [facility] CLIA [id number] Dawn 01-23-2023 CNPN Telephone (OBGLKW) MARINA FRIAS ([id number]) 1985 F Date Time Provider Department 01/23/23 YEIMY SY OBGLKW During your visit today, we recorded the following information about you: Kelsea Matos RN 01/23/2023 11:46 AM Signed Darrell, from [employer], /Tucker Blair that they received a breast pump request from patient and confirming pt is seeing Dr Sy for . Call back # [phone] reference # [id number]. Kelsea Spencer RN, RN 01/23/2023 11:46 AM Signed I spoke with [employer] and they will fax an order for a breast pump for Dr Sy to sign and aware we will fax back once this is signed. Kelsea Matos RN Allergies As of Date: 01/23/2023 Noted Allergy Reaction SULFA (SULFONAMIDE ANTIBIOTICS) 04/23/2017 2 - Rash 7 - Swelling Comments: RASH/FACIAL SWELLING Date Reviewed: 01/15/2023 Reviewed by: Yeimy Sy MD - Fully Assessed Reason for Visit: Question [8017] Prescriptions as of 01/23/2023 - pantoprazole DR (PROTONIX) 20 mg tablet TAKE 1 TABLET BY MOUTH EVERY DAY - ferrous sulfate (IRON) 325 mg (65 mg iron) tablet Take 1 tablet by mouth two times a day. - ascorbic acid, vitamin C, (VITAMIN C) 250 mg tablet Take 1 tablet by mouth once daily. - Breast Pump Double electric breast pump - nitrofurantoin monohydrate and macrocrystal (MACROBID) 100 mg capsule Take a single tablet following intercourse for prevention of urinary tract infection - PNV no.95/ferrous fum/folic ac ( ORAL) Take by mouth. - aspirin, enteric coated (ECOTRIN LOW STRENGTH) 81 mg EC tablet Take 1 tablet by mouth once daily. Problem List As Of Date 01/23/2023 Noted Resolved Supervision of high risk in second tr*09/26/2022 AMA (advanced maternal age) multigravida 35+, s*09/26/2022 Anemia during in third trimester [O99*01/15/2023 Encounter Status:Closed by KELSEA MATOS RN on 01/23/23 Normal [facility] CBC panel Auto (Bld)on 12-25 Erythrocyte distribution width (RBC) [Ratio] 12.9 % Normal 11.5-15.0 [facility] Comment on above: Order Comment: Annita panda Type: BLOOD SPECIMEN [facility] Facility[facility] Address: [address] [place] [address] Performed By: #### 5 8410-2 #### [facility] CLIA [id number] [address] [place] [address] [place] Hematocrit (Bld) [Volume fraction] 33.0 % Low 36.0-46.0 [facility] Comment on above: Order Comment: Annita panda Type: BLOOD SPECIMEN [facility] Address: [address] [place] [address] Performed By: #### 5 8410-2 #### [facility] CLIA [id number] [address] [place] [address] [place] Hemoglobin (Bld) [Mass/Vol] 10.8 g/dL Low 11.5-15.5 [facility] Comment on above: Order Comment: Annita panda Type: BLOOD SPECIMEN Order[facility] Facility[facility] Address: [address] [place] [address] Performed By: #### 5 8410-2 #### [facility] CLIA [id number] [address] [place] [address] [place] MCH (RBC) [Entitic mass] 32.0 pg Normal 26.0-34.0 [facility] Comment on above: Order Comment: Annita panda Type: BLOOD SPECIMEN Ordering Facility[facility] Address: [address] [place] [address] Performed By: #### 5 8410-2 #### [facility] CLIA [id number] [address] [place] [address] MCHC (RBC) [Mass/Vol] 32.7 g/dL Normal 30.5-36.0 [facility] Comment on above: Order Comment: Speci men Type: BLOOD SPECIMEN Order[facility] Facility[facility] Address: [address] [place] [address] Performed By: #### 5 8410-2 #### [facility] CLIA [id number] [address] [place] [address] [place] MCV (RBC) [Entitic vol] 97.6 fL Normal 80.0-100.0 [facility] Comment on above: Order Comment: Speci men Type: BLOOD SPECIMEN Order[facility] Facility[facility] Address: [address] [place] [address] Performed By: #### 5 8410-2 #### [facility] CLIA [id number] [address] [place] [address] [place] Nucleated RBC (Bld) [#/Vol] 10*3/uL Normal <0.01 [facility] Comment on above: Order Comment: Speci men Type: BLOOD SPECIMEN Order[facility] Facility[facility] Address: [address] [place] [address] Performed By: #### 5 8410-2 #### [facility] CLIA [id number] [address] [place] [address] Platelet mean volume (Bld) [Entitic vol] 9.5 fL Normal 9.0-12.7 [facility] Comment on above: Order Comment: Speci men Type: BLOOD SPECIMEN Order[facility] Facility[facility] Address: [address] [place] [address] Performed By: #### 5 8410-2 #### [facility] CLIA [id number] [address] [place], [place] [address] [place] Platelets (Bld) [#/Vol] 311 10*3/uL Normal 150-400 [facility] Comment on above: Order Comment: Speci men Type: BLOOD SPECIMEN Order[facility] Facility[facility] Address: [address] [place] [address] Performed By: #### 5 8410-2 #### [facility] CLIA [id number] [address] [place] [address] [place] RBC (Bld) [#/Vol] 3.38 10*6/uL Low 3.90-5.20 [facility] Comment on above: Order Comment: Speci men Type: BLOOD SPECIMEN Ordering Facility: [facility] Address: [address] [place] [address] Performed By: #### 5 8410-2 #### [facility] CLIA [id number] [address] [place] [address] [place] WBC (Bld) [#/Vol] 6.99 10*3/uL Normal 3.70-11.00 [facility] Comment on above: Order Comment: Speci men Type: BLOOD SPECIMEN Order[facility] Facility[facility] Address: [address] [place] [address] Performed By: #### 5 8410-2 #### [facility] CLIA [id number] [address] [place] [address] [place] GEST GLUC SCREEN, 1-HR, 50 G M, NON-FASTINGon 12-25-2022 Glucose [Mass/Vol] 112 mg/dL Normal 74-134 [facility] Comment on above: Order Comment: Speci men Type: BLOOD SPECIMEN Order[facility] Facility[facility] Address: [address] [place] [address] Result Comment: [facility] Congress of Obstetricians and Gynecologists (Home/Mitra) guidelines state a gestational diabetes mellitus positive screen is made, in women not previously diagnosed with overt diabetes, when the 1 hr plasma glucose level is equal to or above 140 mg/dL. The [facility] [employer] [facility] [place] recommends a 135 mg/dL cutoff. Performed By: #### G LTGST #### [facility] CLIA [id number] [address] [place] [address] [place] HBV surface Ag Ser Qlon 10 HBV surface Ag Ql (S) Negative Normal Negative [facility] Comment on above: Order Comment: Speci men Type: BLOOD SPECIMEN Order[facility] Facility[facility] Address: [address] [place] [address] Performed By: #### 3 1201-7, 58753-2, 5195-3 #### [facility] CLIA [id number] [address] [place] [address] [place] HIV 1+2 Ab IA Qlon 3 HIV 1 and 2 Ab IA.rapid Nom Normal [facility] Comment on above: Order Comment: Speci men Type: BLOOD SPECIMEN Order[facility] Facility: [facility] Address: [address] [place] [address] Result Comment: Test not indicated. Performed By: #### 3 1201-7, 62736-3, 5195-3 #### [facility] CLIA [id number] [address] [place] [address] [place] HIV 1+2 Ab+HIV1 p24 Ag IA Ql Non-Reactive Normal Nonreactive [facility] Comment on above: Order Comment: Speci men Type: BLOOD SPECIMEN Order[facility] Facility[facility] Address: [address] [place] [address] Performed By: #### 3 1201-7, 10655-1, 5195-3 #### [facility] CLIA [id number] [address] [place] [address] [place] [facility] [place] HIV immunoassay testing algorithm interpretation (S/P/Bld) [Interp] Normal [facility] Comment on above: Order Comment: Speci men Type: BLOOD SPECIMEN Order[facility] Facility[facility] Address: [address] [place] [address] Result Comment: No e vidence of HIV-1 or HIV-2 infection. Should recent infection be suspected, repeat testing may be considered 2-3 weeks after this draw. [place] Rev. Code 3701.243(E): This information has been disclosed to you from confidential records protected from disclosure by state law. ???You shall make no further disclosure of this information without the specific, written, and informed release of the individual to whom it pertains or as otherwise permitted by state law. A general authorization for the release of medical or other information is not sufficient for the purpose of the release of HIV test results or diagnoses. Performed By: #### 3 1201-7, 48558-2, 5195-3 #### [facility] CLIA [id number] [address] [place] [address] [place] RUBELLA IGG ABon 12-25-2022 RUBELLA IGG AB, QUAL Positive Normal Positive [facility] Comment on above: Order Comment: Speci men Type: BLOOD SPECIMEN Order[facility] Address: [address] [place] [address] Result Comment: The result suggests recent or past exposure to Rubella virus or history of Rubella vaccination. Positive result may also be seen due to presence of passively-transferred antibodies. Please correlate with patient's history. Performed By: #### R UBIGG #### [facility] CLIA [id number] [address] [place] [address] [place] Reagin and Treponema pallidu m IgG and IgM [Interp]on 12-25-2022 T. pallidum IgG+IgM IA Ql (S) Non-Reactive Normal Nonreactive [facility] Comment on above: Order Comment: Speci men Type: BLOOD SPECIMEN Order[facility] Address: [address] [place] [address] Performed By: #### 3 1201-7, 02188-9, 5195-3 #### [facility] CLIA [id number] [address] [place] [address] [place] Reagin+T pallidum IgG+IgM Se rPl-Impon 12-25-2022 Reagin and Treponema pallidum IgG and IgM [Interp] Cannot exclude recent Treponemal infection if specimen collected within 7-10 days after appearance of suspect lesions or 2-3 weeks after an exposure. Clinical correlation is required. Normal [facility] Comment on above: Order Comment: Speci men Type: BLOOD SPECIMEN [facility] Address: [address] [place] [address] Performed By: #### 3 1201-7, 69639-3, 5195-3 #### [facility] CLIA [id number] [address] [place] [address] [place] URINE OB DIP B/Oon 3 Glucose Ql (U) Negative Neg mg/dL [facility] Protein.monoclonal (U) [Mass/Vol] Negative Neg mg/dL [facility] URINE OB DIP B/Oon 3 Glucose Ql (U) Negative Neg mg/dL [facility] Protein.monoclonal (U) [Mass/Vol] Negative Neg mg/dL [facility] OBSTETRIC ULTRASOUND WHIon 0 10-24-2022 [facility] URINE OB DIP B/Oon 3 Glucose Ql (U) Negative Neg mg/dL [facility] Protein.monoclonal (U) [Mass/Vol] Negative Neg mg/dL [facility] Bacteria Ur Culton 3 Bacteria identified Cx Nom (U) CULTURE, URINE: No growth (<1,000 CFU/ml) Normal [facility] Comment on above: Performed By: #### R UBIGG #### [facility] CLIA [id number] [address] [place] [address] [place] C. trachomatis+N. gonorrhoea e DNA DIGNA+probe Ql (Unsp spec)on 09-26-2022 C. trachomatis rRNA DIGNA+probe Ql (Unsp spec) Negative Normal Negative for Chlamydia trachomatis by amplificaton [facility] Comment on above: Order Comment: Speci men Type: SWAB Ordering Facility: [facility] Address: [address] [place], [place] [address] Performed By: #### 3 [id number] #### [facility] CLIA [id number] [address] [facility] [address] [place] N. 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 Marcello Mejia MD Work Phone: [facility] 12-23-2024 15:18-0400 Body mass index (BMI) [Ratio] 20.2 kg/m2 Dr. Marcello Mejia MD Work Phone: [facility] 12-23-2024 15:18-0400 Body weight 53.[address] Marcello Mejia MD Work Phone: [facility] 12-23-2024 15:18-0400 Diastolic blood pressure 81 mm[Hg] Dr. Marcello Mejia MD Work Phone: [facility] 12-23-2024 15:18-0400 Heart rate 96 /min Dr. Marcello Mejia MD Work Phone: [facility] 12-23-2024 15:18-0400 Systolic blood pressure 113 mm[Hg] Dr. Marcello Mejia MD Work Phone: [facility] 05-01-2023 10:41-0500 Body weight 64.1 kg Yeimy Sy MD Work Phone: [facility] 05-01-2023 10:41-0500 Diastolic blood pressure 63 mm[Hg] Yeimy Sy MD Work Phone: [facility] 05-01-2023 10:41-0500 Systolic blood pressure 114 mm[Hg] Yeimy Sy MD Work Phone: [facility] 03-05-2023 13:03-0500 Body weight 73.03 kg Yeimy Sy MD Work Phone: [facility] 03-05-2023 13:03-0500 Diastolic blood pressure 66 mm[Hg] Yeimy Sy MD Work Phone: [facility] 03-05-2023 13:03-0500 Heart rate 92 /min Yeimy Sy MD Work Phone: [facility] 03-05-2023 13:03-0500 Systolic blood pressure 114 mm[Hg] Yeimy Sy MD Work Phone: [facility] 02-26-2023 13:19-0500 Body weight 74.84 kg Yeimy Sy MD Work Phone: [facility] 02-26-2023 13:19-0500 Diastolic blood pressure 64 mm[Hg] Yeimy Sy MD Work Phone: [facility] 02-26-2023 13:19-0500 Heart rate 88 /min Yeimy Sy MD Work Phone: [facility] 02-26-2023 13:19-0500 Systolic blood pressure 110 mm[Hg] Yeimy Sy MD Work Phone: [facility] 02-13-2023 09:29-0500 Body weight 73.03 kg Yeimy Sy MD Work Phone: [facility] 02-13-2023 09:29-0500 Diastolic blood pressure 60 mm[Hg] Yeimy Sy MD Work Phone: [facility] 02-13-2023 09:29-0500 Heart rate 103 /min Yeimy Sy MD Work Phone: [facility] 02-13-2023 09:29-0500 Systolic blood pressure 106 mm[Hg] Yeimy Sy MD Work Phone: [facility] 01-29-2023 13:32-0500 Body weight 72.12 kg [facility] 2 [facility] 01-29-2023 13:32-0500 Diastolic blood pressure 60 mm[Hg] [facility] 2 [facility] 01-29-2023 13:32-0500 Heart rate 89 /min [facility] 2 [facility] 01-29-2023 13:32-0500 Systolic blood pressure 101 mm[Hg] [facility] 2 [facility] 01-29-2023 13:00-0500 Body height 160 cm [facility] 2 [facility] 01-15-2023 15:07-0400 Body weight 71.22 kg Yeimy Sy MD Work Phone: [facility] 01-15-2023 15:07-0400 Diastolic blood pressure 62 mm[Hg] Yeimy Sy MD Work Phone: [facility] 01-15-2023 15:07-0400 Heart rate 80 /min Yeimy Sy MD Work Phone: [facility] 01-15-2023 15:07-0400 Systolic blood pressure 104 mm[Hg] Yeimy Sy MD Work Phone: [facility] 12-25-2022 10:23-0400 Body weight 68.04 kg Yeimy Sy MD Work Phone: [facility] 12-25-2022 10:23-0400 Diastolic blood pressure 66 mm[Hg] Yeimy Sy MD Work Phone: [facility] 12-25-2022 10:23-0400 Heart rate 86 /min Yeimy Sy MD Work Phone: [facility] 12-25-2022 10:23-0400 Systolic blood pressure 100 mm[Hg] Yeimy Sy MD Work Phone: [facility] 11-19-2022 13:00-0400 Body weight 66.22 kg Yeimy Sy MD Work Phone: [facility] 11-19-2022 13:00-0400 Diastolic blood pressure 64 mm[Hg] Yeimy Sy MD Work Phone: [facility] 11-19-2022 13:00-0400 Heart rate 80 /min Yeimy Sy MD Work Phone: [facility] 11-19-2022 13:00-0400 Systolic blood pressure 112 mm[Hg] Yeimy Sy MD Work Phone: [facility] 10-24-2022 14:05-0400 Body weight 63.96 kg Yeimy Sy MD Work Phone: [facility] 10-24-2022 14:05-0400 Diastolic blood pressure 66 mm[Hg] Yeimy Sy MD Work Phone: [facility] 10-24-2022 14:05-0400 Heart rate 88 /min Yeimy Sy MD Work Phone: [facility] 10-24-2022 14:05-0400 Systolic blood pressure 102 mm[Hg] Yeimy Sy MD Work Phone: [facility] Encounters Encounter Date Encounter Type Care Provider Facility Start: 12-23-2024 End: 12-23-[address] Laura Davies MD -[facility] Work Phone: Start: 12-23-2024 End: 12-23-[address] Marcello Mejia MD Work Phone: -[facility] Start: 09-28-2024 ambulatory Tiara Naqvi cility:[facility] Start: 05-01-2023 End: 05-01-2023 ambulatory YEIMY SY Facility:[facility] Start: 05-01-2023 End: 05-01-2023 Patient encounter procedure Yeimy Sy MD Work Phone: Obstetrics/Gynecology Comment on above: Encounter for gyneco logical examination without abnormal finding (Primary Dx); care and examination of lactating mother Start: 05-01-2023 End: 05-01-2023 Patient encounter status Yeimy Sy MD Work Phone: [facility] Start: 03-23-2023 End: 03-25-2023 Evaluation and management of inpatient LISSA Lutz DEANNAAIDAYOVANY Facility:[facility] Start: 03-20-2023 End: 03-20-2023 ambulatory YEIMYISAK SY Facility:[facility] Start: 03-12-2023 End: 03-12-2023 ambulatory YEIMY SY Facility:[facility] Start: 03-11-2023 ambulatory Shari (Pss) Peroni Vince igate [facility] Comment on above: Population Health Na vigation Outreach (OB/PEDS) Start: 03-05-2023 End: 03-05-2023 ambulatory YEIMY SY Facility:[facility] Start: 03-05-2023 End: 03-05-2023 Patient encounter procedure Yeimy Sy MD Work Phone: Obstetrics/Gynecology Comment on above: Supervision of high risk in third trimester (Primary Dx) Start: 02-26-2023 End: 02-26-2023 ambulatory YEIMY SY Facility:[facility] Start: 02-26-2023 End: 02-26-2023 Patient encounter procedure Yeimy Sy MD Work Phone: Obstetrics/Gynecology Comment on above: 36 weeks gestation o f (Primary Dx) Start: 02-13-2023 End: 02-13-2023 ambulatory YEIMY SY Facility:[facility] Start: 02-13-2023 End: 02-13-2023 Patient encounter procedure Yeimy Sy MD Work Phone: Obstetrics/Gynecology Comment on above: Supervision of high risk in third trimester (Primary Dx); 34 weeks gestation of Start: 01-29-2023 End: 01-29-2023 ambulatory YEIMY SY Facility:[facility] Start: 01-29-2023 End: 01-29-2023 Patient encounter procedure Whi [employer] 2 Web Coordinator [facility] 2 [facility]aternal [facility] Comment on above: Encounter for ultras ound to check growth (Primary Dx); Supervision of high risk in third trimester; Uterine size date discrepancy, third trimester; 32 weeks gestation of 32 weeks gestation o f (Primary Dx) Start: 01-26-2023 End: 01-27-2023 ambulatory APRIL Rivera SAMSON Facility:[facility] Start: 01-23-2023 Telephone encounter Yeimy noel MD Work Phone: Obstetrics/Gynecology Comment on above: Question Start: 01-15-2023 End: 01-15-2023 ambulatory YEIMY SY Facility:[facility] Start: 01-15-2023 End: 01-15-2023 Patient encounter procedure Yeimy Sy MD Work Phone: Obstetrics/Gynecology Comment on above: Supervision of high risk in third trimester (Primary Dx); Anemia during in third trimester Start: 12-27-2022 Orders Only Yeimy Sy MD Work Phone: Obstetrics/Gynecology Start: 12-25-2022 End: 12-25-2022 ambulatory YEIMY SY Facility:[facility] Start: 12-25-2022 End: 12-25-2022 ambulatory YEIMY SY Facility:[facility] Start: 12-25-2022 End: 12-25-2022 Patient encounter procedure Yeimy Sy MD Work Phone: Obstetrics/Gynecology Comment on above: Need for influenza v accination (Primary Dx); 27 weeks gestation of Start: 12-01-2022 Refill Yeimy Sy MD Work Phone: Obstetrics/Gynecology Comment on above: Med Change Request Start: 11-29-2022 ambulatory Yeimy Sy MD Work Phone: Obstetrics/Gynecology Comment on above: Medications Start: 11-19-2022 End: 11-19-2022 ambulatory YEIMY SY Facility:[facility] Start: 11-19-2022 End: 11-19-2022 Patient encounter procedure Yeimy Sy MD Work Phone: Obstetrics/Gynecology Comment on above: Supervision of high risk in second trimester (Primary Dx); 22 weeks gestation of Start: 10-30-2022 ambulatory Facility:[facility] Start: 10-24-2022 End: 10-24-2022 ambulatory YEIMY SY Facility:[facility] Start: 10-24-2022 End: 10-24-2022 Patient encounter procedure Yeimy Sy MD Work Phone: Obstetrics/Gynecology Comment on above: 18 weeks gestation o f (Primary Dx) Encounter for anatomic survey (Primary Dx); Supervision of high risk in second trimester; Multigravida of advanced maternal age in second trimester; 18 weeks gestation of Start: 09-26-2022 End: 09-26-2022 Patient encounter procedure Yeimy Sy MD Work Phone: Obstetrics/Gynecology Comment on above: Supervision of high risk in second trimester (Primary Dx) Start: 09-26-2022 End: 09-27-2022 ambulatory YEIMY SY Facility:[facility] Procedures Date Procedure Procedure Detail Performing Clinician Start: 03-23-2023 Antibody screen LISSA NAIK Comment on above: Order Comment: Speci men Type: BLOOD SPECIMENOrdering Facility: [facility] Address: [address] [place] [address] Performed By: #### T SPN ####[facility] BANKCLIA [id number] [place] [address] [place] Start: 02-13-2023 URINE OB DIP B/O Sangita Sy MD Work Phone: Start: 02-13-2023 RSV VACCINE, BIVALEN T (ABRYSVO) Yeimy Sy MD Work Phone: Start: 01-29-2023 Us preg uterus after 1st trimest 03/25 gestation Yeimy Sy MD Work Phone: Start: 01-26-2023 Antibody screen LISSA NAIK Comment on above: Order Comment: Speci men Type: BLOOD SPECIMENOrdering Facility: [facility] Address: [address] [place] [address] Performed By: #### T SPN ####[facility] [id number] [place] [address] [place] Start: 12-25-2022 URINE OB DIP B/O Sangita Sy MD Work Phone: Start: 12-25-2022 INFLUENZA VACCINE, A GE 6 MO - 64 YR, QUADRIVALENT (AFLURIA, FLULAVAL, FLUZONE) Yeimy Sy MD Work Phone: Start: 11-19-2022 URINE OB DIP B/O Sangita Sy MD Work Phone: Start: 10-24-2022 URINE OB DIP B/O Sangita Sy MD Work Phone: Start: 10-24-2022 Us preg uterus after 1st trimest 03/25 gestation Yeimy Sy MD Work Phone: Start: 09-26-2022 Us uterus l imited fetuses Yeimy Sy MD Work Phone: Plan of Treatment Date Care Activity Detail Author Start: 12-25-2032 Urine microalbumin profile [facility] Start: 03-25-2023 Depression Assessment Depression Ass essment [facility] Start: 01-15-2023 End: 01-16-2024 OBSTETRIC ULTRASOUND WHI OBSTETRIC ULTRASOUND WHI Anc Imaging Routine Supervision of high risk in third trimester Expected: 01/15/2023, Expires: 01/16/2024 [facility] Work Phone: Comment on above: Expected: 01/15/2023 , Expires: 01/16/2024 Start: 11-23-2022 Covid-19 Vaccine () Covid-19 Vaccine () [facility] Start: 11-23-2022 Influenza vaccination INFLUENZA (#1) [facility] Start: 11-19-2022 End: 01-19-2023 CBC panel - Blood by Automated count CBC Lab Routine 22 weeks gestation of Expected: 11/19/2022, Expires: 01/19/2023 [facility] Work Phone: Comment on above: Expected: 11/19/2022 , Expires: 01/19/2023 Start: 11-19-2022 End: 01-19-2023 GEST GLUC SCREEN, 1-HR, 50 GM, NON-FASTING GEST GLUC SCREEN, 1-HR, 50 GM, NON-FASTING Lab Routine 22 weeks gestation of Expected: 11/19/2022, Expires: 01/19/2023 [facility] Work Phone: Comment on above: Expected: 11/19/2022 , Expires: 01/19/2023 Start: 11-19-2022 End: 01-19-2023 Hepatitis B virus surface Ag [Presence] in Serum HEP B SURF AG SCRN Lab Routine Supervision of high risk in second trimester Expected: 11/19/2022, Expires: 01/19/2023 [facility] Work Phone: Comment on above: Expected: 11/19/2022 , Expires: 01/19/2023 Start: 11-19-2022 End: 01-19-2023 HIV 1+2 Ab [Presence] in Serum or Plasma by Immunoassay HIV 1 2 COMBO(AG/AB),WITH REFLEX TO DIFFERENTIATION Lab Routine Supervision of high risk in second trimester Expected: 11/19/2022, Expires: 01/19/2023 [facility] Work Phone: Comment on above: Expected: 11/19/2022 , Expires: 01/19/2023 Start: 11-19-2022 End: 01-19-2023 RUBELLA IGG AB RUBELLA IGG AB Lab Routine Supervision of high risk in second trimester Expected: 11/19/2022, Expires: 01/19/2023 [facility] Work Phone: Comment on above: Expected: 11/19/2022 , Expires: 01/19/2023 Start: 11-19-2022 End: 01-19-2023 SYPHILIS TOTAL W/REFLEX SYPHILIS TOTAL W/REFLEX Lab Routine Supervision of high risk in second trimester Expected: 11/19/2022, Expires: 01/19/2023 [facility] Work Phone: Comment on above: Expected: 11/19/2022 , Expires: 01/19/2023 Start: 03-25-2022 DEPRESSION ASSESSMENT DEPRESSION ASS ESSMENT [facility] Start: 05-11-2021 COVID-19 VACCINE (4 - Booster for Pfizer series) COVID-19 VACCINE (4 - Booster for Pfizer series) [facility] Start: 05-11-2021 COVID-19 VACCINE (4 - Pfizer series) COVID-19 VACCINE (4 - Pfizer series) [facility] Start: 10-15-2017 HPV TESTING HPV TESTING [facility] Start: 10-15-2017 Screening for malignant neoplasm of cervix HPV Testing [facility] Start: 10-15-2008 PAP TESTING PAP TESTING [facility] Start: 10-15-2008 Screening for malignant neoplasm of cervix Pap Testing [facility] Start: 10-15-2006 Urine microalbumin profile DTAP,TDAP,TD (1 - Tdap) [facility] Start: 10-15-2005 HEPATITIS C SCREENING HEPATITIS C [facility] Start: 10-15-2005 Hepatitis C screening Hepatitis C [facility] Start: 10-15-2005 HIV SCREENING HIV SCREENING [facility] Start: 1987 HEPATITIS B (1 of 3 - 3-dose series) HEPATITIS B (1 of 3 - 3-dose series) [facility] Start: 1987 Hepatitis B Vaccine (1 of 3 - 3-dose series) Hepatitis B Vaccine (1 of 3 - 3-dose series) [facility] CT Abdomen and Pelvi s [facility] PAP TEST PAP TEST Lab Renaldo rodriguez care and examination of lactating mother 05/01/2023 11:09 AM EST [facility] Work Phone: ROUTINE, GROUP B STREP PCR ROUTINE, GROUP B STREP PCR Microbiology Routine 36 weeks gestation of 02/26/2023 1:37 PM EST [facility] Work Phone: URINE OB DIP B/O URINE OB DIP B/ O Lab Routine 32 weeks gestation of Ordered: 01/29/2023 [facility] Work Phone: Comment on above: Ordered: 01/29/2023 URINE OB DIP B/O URINE OB DIP B/ O Lab Routine 36 weeks gestation of Ordered: 02/26/2023 [facility] Work Phone: Comment on above: Ordered: 02/26/2023 [facility] Immunizations Immunization Date Immunization Notes Care Provider aPl carrion 02-13-2023 respiratory syncytia l virus (RSV) vaccine, bivalent (ABRYSVO) Yeimy Sy MD Work Phone: [facility] 12-25-2022 influenza, injectabl e, quadrivalent, contains preservative Yeimy Sy MD Work Phone: [facility] 12-25-2022 tetanus toxoid, redu anna diphtheria toxoid, and acellular pertussis vaccine, adsorbed Yeimy Sy MD Work Phone: [facility] Payers Date Payer Category Payer Self-pay 2024 Unknown [id number] 2022 Unknown [id number] 2022 Unknown [id number] 2022 Private Health Insurance [id number] 2022 Private Health Insurance [id number] Unknown [id number] Unknown [id number] Social History Date Type Detail Facility Start: 09-26-2022 End: 12-23-2024 Tobacco smoking status NHIS Never smoked tobacco [facility] Start: 09-26-2022 Tobacco use and exposure Smokeless tobacco non-user [facility] Start: 09-26-2022 End: 05-01-2023 Alcohol intake Ex-drinker (finding) [facility] Start: 06-30-2022 [facility] Start: 1985 Sex Assigned At Not on file [facility] Start: 09-26-2022 End: 01-15-2023 History of Social function [facility] Start: 09-26-2022 End: 01-15-2023 Tobacco use panel [facility] National Score (1-100), lower number is lower risk 45 [facility] Start: 1985 Sex Assigned At Female [facility] Clinical Notes 09-26-2022 to 05-01-2023 Yeimy Sy MD - 05/01/2023 11:03 AM Mayuri Nova Maorah - 05/01/2023 10:44 AM EST Note Date & Type Note Facility 05-01-2023 Note HNO ID: [id number] Author: YEIMY SY MD Service: ? Author Type: Physician Type: Progress Notes Filed: 05/01/2023 11:10 Note Text: Marina Frias is a 37 year old who presents for her post exam. Patient's last menstrual period was 06/16/2022. Cylinder Inspector And Tester concerns pt is breast feeding, going well. PAST MEDICAL HISTORY Diagnosis Date Kidney stone 06/23/2020 hemorrhage PAST SURGICAL HISTORY Procedure Laterality Date VAGINOSCOPY FAMILY HISTORY Problem Relation Age of Onset Hypertension Father Hypertension Maternal Grandmother Hypertension Maternal Grandfather Skin Cancer Paternal Grandfather Social History Tobacco Use Smoking status: Never Smokeless tobacco: Never Substance Use Topics Alcohol use: Not Currently Drug use: Never REVIEW OF SYSTEMS GENERAL: No weight loss, malaise or fevers HEENT: Negative for frequent or significant headaches, No changes in hearing or vision, no nose bleeds or other nasal problems NECK: Negative for lumps, goiter, pain and significant neck swelling RESPIRATORY: Negative for cough, hemoptysis, wheezing, COPD, dyspnea or shortness of breath CARDIOVASCULAR: Negative for chest pain, leg swelling, hypertension, CHF or palpitations GI: No nausea, vomiting, or diarrhea : No history of dysuria, frequency or incontinence CYBER DEFENSE INCIDENT RESPONDER: Negative for abnormal vaginal bleeding, abnormal vaginal discharge MUSCULOSKELETAL: Negative for joint pain or swelling, back pain or muscle pain SKIN: Negative for lesions, rash, and itching PSYCH: Negative for sleep disturbance, mood disorder and recent psychosocial stressors. HEMATOLOGY/LYMPHOLOGY Negative for prolonged bleeding, bruising easily or swollen nodes ENDOCRINE: Negative for cold or heat intolerance, polyuria, polydipsia and goiter NEURO: No history of headaches, syncope, paralysis, seizures or tremors BLADDER: No burning with urination, blood in urine or incontinence and No change in vaginal discharge, burning, dryness or itching BOWEL: No blood in stool, pain with BM, tarry stool, persistent diarrhea or constipation BREAST: No breast lumps, nipple d/c, overlying skin changes, redness or skin retraction BP 114/63 Wt 141 lb 5 oz (64.1 kg) LMP 06/16/2022 Yes BMI 25.03 kg/m? EXAM: pleasant, well developed, well nourished female in no apparent distress HEENT: WNL NECK: Full range of motion,no adenopathy,thyroid normal DERMATOLOGY:Without lesions, Non-icteric, non-hirsute BREAST: soft, non-tender, symmetric, no dominant mass, normal nipple-areolar complex, no lymphadenopathy, and no nipple discharge THYROID: normal to inspection and palpation ABDOMEN: Soft, non-tender, no masses, no hepatosplenomegaly, and no lymphadenopathy PELVIC: external genitalia normal, no vulvar lesions, no cervical lesions, normal discharge, vault clean with normal discharge, normal appearing perineal body and perianal region BIMANUAL: no cervical motion tenderness/, uterus normal size, shape and consistency, no adnexal masses, and non-tender RECTAL: Not done NEURO: alert and oriented x3,exam grossly non-focal EXTREMITIES: Warm,No cyanosis, clubbing,No edema,nontender ASSESSMENT: Normal post DIAGNOSIS AND PLAN: Encounter Diagnosis ICD-10-CM 1. Encounter for gynecological examination without abnormal finding Z01.419 2. care and examination of lactating mother Z39.1 PAP TEST Pap ordered. Reflex HPV ordered. HPV digene done Gen probe/urogenital culture dec Reviewed and encouraged self-breast exam. 4811-2935 mg of calcium daily. Encourged a healthy diet and exercise. Reviewed calcium and folic acid intake. Return to office in one year or earlier as needed. Declines contraception Moving to [facility] for intercourse, will call when needs more. Yeimy Sy MD [facility] 05-01-2023 History of Present illness Narrative Marina Frias is a 37 year old who presents for her post exam. Patient's last menstrual period was 06/16/2022. Cylinder Inspector And Tester concerns pt is breast feeding, going well. PAST MEDICAL HISTORY Diagnosis Date Kidney stone 06/23/2020 hemorrhage PAST SURGICAL HISTORY Procedure Laterality Date VAGINOSCOPY FAMILY HISTORY Problem Relation Age of Onset Hypertension Father Hypertension Maternal Grandmother Hypertension Maternal Grandfather Skin Cancer Paternal Grandfather Social History Tobacco Use Smoking status: Never Smokeless tobacco: Never Substance Use Topics Alcohol use: Not Currently Drug use: Never REVIEW OF SYSTEMS GENERAL: No weight loss, malaise or fevers HEENT: Negative for frequent or significant headaches, No changes in hearing or vision, no nose bleeds or other nasal problems NECK: Negative for lumps, goiter, pain and significant neck swelling RESPIRATORY: Negative for cough, hemoptysis, wheezing, COPD, dyspnea or shortness of breath CARDIOVASCULAR: Negative for chest pain, leg swelling, hypertension, CHF or palpitations GI: No nausea, vomiting, or diarrhea : No history of dysuria, frequency or incontinence [employer] DEFENSE INCIDENT RESPONDER: Negative for abnormal vaginal bleeding, abnormal vaginal discharge MUSCULOSKELETAL: Negative for joint pain or swelling, back pain or muscle pain SKIN: Negative for lesions, rash, and itching PSYCH: Negative for sleep disturbance, mood disorder and recent psychosocial stressors. HEMATOLOGY/LYMPHOLOGY Negative for prolonged bleeding, bruising easily or swollen nodes ENDOCRINE: Negative for cold or heat intolerance, polyuria, polydipsia and goiter NEURO: No history of headaches, syncope, paralysis, seizures or tremors BLADDER: No burning with urination, blood in urine or incontinence and No change in vaginal discharge, burning, dryness or itching BOWEL: No blood in stool, pain with BM, tarry stool, persistent diarrhea or constipation BREAST: No breast lumps, nipple d/c, overlying skin changes, redness or skin retraction BP 114/63 Wt 141 lb 5 oz (64.1 kg) LMP 06/16/2022 Yes BMI 25.03 kg/m EXAM: pleasant, well developed, well nourished female in no apparent distress HEENT: WNL NECK: Full range of motion,no adenopathy,thyroid normal DERMATOLOGY:Without lesions, Non-icteric, non-hirsute BREAST: soft, non-tender, symmetric, no dominant mass, normal nipple-areolar complex, no lymphadenopathy, and no nipple discharge THYROID: normal to inspection and palpation ABDOMEN: Soft, non-tender, no masses, no hepatosplenomegaly, and no lymphadenopathy PELVIC: external genitalia normal, no vulvar lesions, no cervical lesions, normal discharge, vault clean with normal discharge, normal appearing perineal body and perianal region BIMANUAL: no cervical motion tenderness/, uterus normal size, shape and consistency, no adnexal masses, and non-tender RECTAL: Not done NEURO: alert and oriented x3,exam grossly non-focal EXTREMITIES: Warm,No cyanosis, clubbing,No edema,nontender ASSESSMENT: Normal post DIAGNOSIS AND PLAN: Encounter Diagnosis ICD-10-CM 1. Encounter for gynecological examination without abnormal finding Z01.419 2. care and examination of lactating mother Z39.1 PAP TEST Pap ordered. Reflex HPV ordered. HPV digene done Gen probe/urogenital culture dec Reviewed and encouraged self-breast exam. [id number] mg of calcium daily. Encourged a healthy diet and exercise. Reviewed calcium and folic acid intake. Return to office in one year or earlier as needed. Declines contraception [place] to [place] Macrobid for intercourse, will call when needs more. Yeimy Sy MD documented in this encounter [facility] 05-01-2023 Nurse Note Pt here for a exam. documented in this encounter [facility] 03-25-2023 Note HNO ID: [id number] Author: Feli Aguilera APRN.CYLINDER DYER Service: Obstetrics Author Type: Nurse Practitioner Type: Progress Notes Filed: 03/25/2023 8:38 AM Note Text: Patient seen and doing well without complaints. Pain and bleeding well controlled. Patient progressed through post-delivery milestones without difficulty. Remained afebrile with stable vital signs throughout the period. Discharged after tolerating PO well, ambulating, passing flatus, and urinating without difficulty.Questions and concerns addressed. Plan of care discussed with: Provider, RN, Patient. A: Resting comfortably in bed, in no acute distress. BP 112/67 Pulse 84 Temp 36.7 ?C (98.1 ?F) (Oral) Resp 16 Ht 160 cm (5' 3") Wt 75.3 kg (166 lb) LMP 06/16/2022 SpO2 97% Unknown BMI 29.41 kg/m? CBC, Coags, BMP, Mg, Phos Recent Labs 03/23/232023 WBC 8.97 HB 11.5 HCT 34.5* PLT 300 Feli Aguilera APRN.CYLINDER DYER 03/25/2023 8:38 AM [facility] 03-24-2023 History of Past i llness Narrative Problem Noted Date Diagnosed Date Resolved Date Normal labor and delivery 03/24/2023 examination follo wing vaginal delivery 03/24/2023 05/01/2023 and not yet deliver ed in third trimester 03/23/2023 05/01/2023 Threatened labor, antepartum 01/27/2023 01/27/2023 32 weeks gestation of 01/27/2023 02/26/2023 Threatened labor, third trimester 01/26/2023 05/01/2023 Overview: Fingertip, no cervical change and contractions stopped Anemia during in third trimester 01/15/2023 05/01/2023 Overview: On iron. Supervision of high risk pre gnancy in second trimester 09/26/2022 05/01/2023 Overview: TF from [place]. Did [id number], normal and did not to an NT. AMA (advanced maternal age) multigravida 35+, second trimester 09/26/2022 05/01/2023 Overview: [id number] wnl. Did not do the NT. documented as of this encounter (statuses as of 05/01/2023) [facility]12-31-2023 NoteHNO ID: [id number] Author: Lisa Wood APRN.CYLINDER DYER Service: Obstetrics Author Type: Nurse Practitioner Type: Progress Notes Filed: 03/24/2023 9:49 AM Note Text: OBSTETRICS PROGRESS NOTE SERVICE DATE: March 24, 2023 SERVICE TIME: 9:46 AM ASSESSMENT: 37 year old female who is Day #1 status post Vaginal, Spontaneous delivery with male . Doing well- second baby IOL Routine care -Encourage ambulation -Encourage patient to use pain meds. -Rh pos, rubella imm -Hgb 11.5 pre-delivery, with QBL of 150 -: -Follow-up 2 and 6 weeks -Discharge instructions given to patient regarding pelvic rest, bathing, stairs, walking, lifting, driving, and follow-up. Including but not limited to PP hemorrhage, infection, PP depression, mastitis, DVT/PE education. Patient expresses understanding. OTC homegoing meds PLAN: Routine care. . Discharge instructions given to patient regarding pelvic rest, bathing, stairs, walking, lifting, driving, and follow-up. Patient expresses understanding. Plan of care discussed with: Provider, RN, Patient. Anticipate discharge day: PPD #2 SUBJECTIVE: Patient has no current complaints. Tolerating PO intake. Urinating without difficulty. Passing flatus. Pain well controlled with current regimen. Lochia decreasing. Ambulating without difficulty. OBJECTIVE: PHYSICAL EXAM: Heart: RR, S1, S2 Lungs: clear to auscultation Abdomen: Soft Fundus firm below umbilicus Non-distended Extremities: No calf tenderness and No edema LAST VITALS: Pulse BP Resp O2 Sat Temp Pain 85 105/67 16 96 % 36.7 ?C (98.1 ?F) 2 Avg Min Max Vitals (last 12 hours) Flowsheet Row Name Average Min Max BP: Systolic 103.11 89 119 BP: Diastolic 61 50 69 Temp 36.6 ?C (97.9 ?F) 36.4 ?C (97.5 ?F) 36.7 ?C (98.1 ?F) Pulse 88.28 72 98 Resp 17.37 16 20 SpO2 98.13 % 96 % 100 % HT/WT/BMI: Height Weight BMI 160 cm (5' 3") 75.3 kg (166 lb) 29.41 LABS ABO/RH: 03/23/2023: AB; Positive RUBELLA: 12/25/2022: Positive HANDH: Hematocrit (%) Date Value 03/23/2023 34.5 Hemoglobin (g/dL) Date Value 03/23/2023 11.5 Diagnostic tests reviewed for today's visit: Most recent labs SIGNATURE: Lisa Wood APRN.CNP PATIENT NAME: Marina Frias DATE: March 24, 2023 TIME: 9:45 [facility]12-31-2023 NoteHNO ID: [id number] Author: Ant Byrne SRNA Service: Anesthesiology Author Type: Student Type: Anesthesia Procedure Notes Filed: 03/23/2023 11:25 PM Note Text: ANESTHESIOLOGY PROCEDURE NOTE Epidural Block General Information Procedure Start Time/Medication Administration: 03/23/2023 11:10 PM Patient location during procedure: [facility] room Informed Consent Consent Obtained: Written [place] Protocol A moment to CARE was completed. SIGN IN Sign in communication not applicable due to emergent procedure. Personnel directly involved with the procedure wore the appropriate PPE. Special Equipment: N/A Patient/Surrogate Stated/Verified: Patient name and Date of TIME OUT Intended patient and procedure match the source document(s). Consent documented and matches the intended procedure. Relevant labs, photos, and/or imaging studies have been reviewed. Correct side/site marked and visible. Medications required for procedure verified. No fire risk assessment and interventions applicable. No implant(s) inserted. Reason for block: labor epidural Staffing Anesthesiologist: Ana Deshpande MD SRNA: Ant Byrne SRNA Performed by: BRIELLE and anesthesiologist Preparation Sterility Preparation: hand hygiene performed prior to procedure, sterile gloves, drapes, and procedure tray, surgical cap used, mask used, sterile drape used during line insertion, skin prep agent completely dried prior to procedure Site Prep: Duraprep Procedure Details Patient position: sitting Ultrasound Guided: No Patient monitoring: Pulse OX and NIBP Approach: midline Injection technique: PAOLO saline Region: lumbar Estimated Interspace: 3-4 Needle and Epidural Catheter Needle type: BlikBookjuliet Needle gauge: 18 G Needle insertion depth: 4.5 cm Catheter Catheter type: end hole Catheter size: 20 G Catheter at skin depth: 10 cmTest Dose Response: negative Assessment Sensory level: T10 Beginning Pain Score: 10/10 Events: Tolerated well SIGN OUT All instruments, equipment, possible retained foreign bodies accounted for. Comments 1.% Lidocaine for skin localization Negative for heme / CSF / Paresthesia SIGNATURE: BRIELLE Sanches PATIENT NAME: Marina Frias DATE: March 23, 2023 TIME: 11:10 PM CSN: [id number] NoteHNO ID: [id number] Author: Shari Campos Service: ? Author Type: ? Type: Progress Notes Filed: 03/11/2023 2:50 PM Note Text: POPULATION HEALTH NAVIGATION OUTREACH Action/FYI Called and spoke to patient and she said she did select a provider. Updated OB/PEDS to Annalisa Allen. Patient thanked me for calling. OB/PEDS Patient Identified by Name and : YES, via phone Outreach Outcome/Action OB/PEDS field updated Did you use a PCP flex slot to schedule this appointment? N/A Reason for Outreach Payer: Payor: Scout DE OLIVEIRANA / Plan: [facility] RESIDENTS / Product Type: EPO / Care Gap Reviewed:: N/A Reminder: Reminder note to check Health Maintenance for items below Health Maintenance items due: Hepatitis B Vaccine(1 of 3 - 3-dose series) Never done Hepatitis C Screening Never done Pap Testing Never done HPV Testing Never done Depression Assessment Never done Covid-19 Vaccine( season) due on 11/23/2022 Navigation Signature: Shari Rand March 11, 2023 2:49 [facility] History of Present illness Narrative* Shari Campos - 03/11/2023 2:49 PM EST POPULATION HEALTH NAVIGATION OUTREACH Action/JEANETTE Called and spoke to patient and she said she did select a provider. Updated OB/PEDS to Annalisa Allen. Patient thanked me for calling. OB/PEDS Patient Identified by Name and : YES, via phone Outreach Outcome/Action OB/PEDS field updated Did you use a PCP flex slot to schedule this appointment? N/A Reason for Outreach Payer: Payor: Scout FLORES / Plan: [facility] RESIDENTS / Product Type: EPO / Care Gap Reviewed:: N/A Reminder: Reminder note to check Health Maintenance for items below Health Maintenance items due: Hepatitis B Vaccine(1 of 3 - 3-dose series) Never done Hepatitis C Screening Never done Pap Testing Never done HPV Testing Never done Depression Assessment Never done Covid-19 Vaccine( season) due on 11/23/2022 Navigation Signature: Shari Rand March 11, 2023 2:49 PM documented in [facility] encounter[facility] NotePatient Outreach (NETNAV) MARINA FRIAS ([id number]) 1985 F Date Time Provider Department 03/11/23 SHARI HUDSON (RAJ) KIRIT During your visit today, we recorded the following information about you: Shari Campos 03/11/2023 2:50 PM Signed POPULATION HEALTH NAVIGATION OUTREACH Action/FYI Called and spoke to patient and she said she did select a provider. Updated OB/PEDS to Annalisa Allen. Patient thanked me for calling. OB/PEDS Patient Identified by Name and : YES, via phone Outreach Outcome/Action OB/PEDS field updated Did you use a PCP flex slot to schedule this appointment? N/A Reason for Outreach [place] Payer: Payor: [facility] [employer] / Plan: [facility] RESIDENTS / Product Type: EPO / Care Gap Reviewed:: N/A Reminder: Reminder note to check Health Maintenance for items below Health Maintenance items due: Hepatitis B Vaccine(1 of 3 - 3-dose series) Never done Hepatitis C Screening Never done Pap Testing Never done HPV Testing Never done Depression Assessment Never done Covid-19 Vaccine( season) due on 11/23/2022 Navigation Signature: Shari Hudson [facility] March 11, 2023 2:49 PM Allergies As of Date: 03/11/2023 Noted Allergy Reaction SULFA (SULFONAMIDE ANTIBIOTICS) 04/23/2017 2 - Rash 7 - Swelling Comments: RASH/FACIAL SWELLING Date Reviewed: 03/05/2023 Reviewed by: Yeimy Sy MD - Fully Assessed Reason for Visit: Population Health Navigation Outreach [3910] Cmt: OB/PEDS Prescriptions as of 03/11/2023 - pantoprazole DR (PROTONIX) 20 mg tablet TAKE 1 TABLET BY MOUTH EVERY DAY - ferrous sulfate (IRON) 325 mg (65 mg iron) tablet Take 1 tablet by mouth two times a day. - ascorbic acid, vitamin C, (VITAMIN C) 250 mg tablet Take 1 tablet by mouth once daily. - Breast Pump Double electric breast pump - nitrofurantoin monohydrate and macrocrystal (MACROBID) 100 mg capsule Take a single tablet following intercourse for prevention of urinary tract infection - PNV no.95/ferrous fum/folic ac ( ORAL) Take by mouth. - aspirin, enteric coated (ECOTRIN LOW STRENGTH) 81 mg EC tablet Take 1 tablet by mouth once daily. Problem List As Of Date 03/11/2023 Noted Resolved Supervision of high risk in second tr*09/26/2022 AMA (advanced maternal age) multigravida 35+, s*09/26/2022 Anemia during in third trimester [O99*01/15/2023 Threatened labor, third trimester [O47.*01/26/2023 Threatened labor, antepartum [O47.00] 01/27/2023 01/27/2023 32 weeks gestation of [Z3A.32] 01/27/2023 02/26/2023 Encounter Status:Closed by SHARI CAMPOS on 03/11/23[facility]12-12-2023 History and physical note* Yeimy Sy MD - 03/05/2023 1:14 PM EST OBSTETRICS HISTORY AND PHYSICAL NAME: Marina Frias SERVICE DATE: March 05, 2023 SERVICE TIME: 1:14 PM ASSESSMENT & PLAN: 37 year old EGA:37w3d. Plan for delivery in <30 days. POST DELIVERY CONTRACEPTION: Discussed post-delivery contraception options. Patient received written information about post-delivery contraception options. Patient does not desire post-delivery contraception. SUBJECTIVE: CHIEF COMPLAINT: routine ob visit. HISTORY OF THE PRESENT ILLNESS: The patient is a 37 year old female, , who is at 37w3d with an SEUN of 03/23/2023, by Last Menstrual Period dating method. Patient has Good movement. Denies vaginal bleeding., Denies contractions., Denies leaking of fluid. . Patient is GBS Negative. Her has been complicated by the following issues: Active Non-Hospital Problems Diagnosis Date Noted Threatened labor, third trimester 01/26/2023 Overview Note: Fingertip, no cervical change and contractions stopped Anemia during in third trimester 01/15/2023 Overview Note: On iron. Supervision of high risk in second trimester 09/26/2022 Overview Note: TF from [place]. Did [id number], normal and did not to an NT. AMA (advanced maternal age) multigravida 35+, second trimester 09/26/2022 Overview Note: wnl. Did not do the NT. ANESTHESIA COMPLICATIONS: None HISTORY REVIEW PAST MEDICAL HISTORY Diagnosis Date Kidney stone 06/23/2020 hemorrhage PAST SURGICAL HISTORY Procedure Laterality Date VAGINOSCOPY FAMILY HISTORY Problem Relation Age of Onset Hypertension Father Hypertension Maternal Grandmother Hypertension Maternal Grandfather Skin Cancer Paternal Grandfather Social History Tobacco Use Smoking status: Never Smokeless tobacco: Never Substance Use Topics Alcohol use: Not Currently Drug use: Never Obstetric History T1 L1 SAB0 IAB0 Ectopic0 Multiple0 Live Births1 Comment: 39w5d boy 7#15oz pt had PTL and was montiroed and give betamethasone but not treated with anything to stop labor. Was monitored in clinic, not sent to hospital. Name of Baby 1: SALVADOR FRIAS Date: 02/07/21 GA: 39w5d Delivery: Vaginal, Spontaneous Apgar1: 8 Apgar5: 9 Living: Living Name of Baby 2: Not recorded Date: Not recorded GA: Not recorded Delivery: Not recorded Apgar1: Not recorded Apgar5: Not recorded Living: Not recorded ALLERGIES: ALLERGIES Allergen Reactions Sulfa (Sulfonamide * Rash, Swelling RASH/FACIAL SWELLING PRIOR TO ADMISSION MEDICATIONS: Prior to Admission medications as of 03/05/23 1313 Medication Sig Last Dose Taking pantoprazole DR (PROTONIX) 20 mg tablet TAKE 1 TABLET BY MOUTH EVERY DAY Taking Yes ferrous sulfate (IRON) 325 mg (65 mg iron) tablet Take 1 tablet by mouth two times a day. Taking Yes ascorbic acid, vitamin C, (VITAMIN C) 250 mg tablet Take 1 tablet by mouth once daily. Taking Yes Breast Pump Double electric breast pump Taking Yes nitrofurantoin monohydrate and macrocrystal (MACROBID) 100 mg capsule Take a single tablet following intercourse for prevention of urinary tract infection Taking Yes PNV no.95/ferrous fum/folic ac ( ORAL) Take by mouth. Taking Yes aspirin, enteric coated (ECOTRIN LOW STRENGTH) 81 mg EC tablet Take 1 tablet by mouth once daily. Patient not taking: Reported on 01/15/2023 No medication comments found. REVIEW OF SYSTEMS: The remainder of the review of systems is negative. OBJECTIVE: PHYSICAL EXAM: General: WD, WN HEENT: NC/AT, sclera white, pupils equal, no thyromegaly Abdomen: soft, nontender, no masses Uterus: soft, NT Extremities: 1+ edema DTRs: 2+ Pelvimetry: Pelvimetry clinically assessed as adequate LAST VITALS: BP 114/66 Pulse 92 Wt 161 lb (73 kg) LMP 06/16/2022 BMI 28.52 kg/m Heart Rate: 130 LABS Diagnostic tests reviewed for today's visit: Most recent labs and imaging results. Maternal Results (In Last 9 Months): Hemoglobin (g/dL) Date/Time Value 01/26/2023 1838 11.1 (L) 12/25/2022 1014 10.8 (L) Hematocrit (%) Date/Time Value 01/26/2023 1838 33.1 (L) 12/25/2022 1014 33.0 (L) Platelet Count (k/uL) Date/Time Value 01/26/2023 1838 260 12/25/2022 1014 311 ABO (no units) Date/Time Value 01/26/2023 1838 AB Rh(D) (no units) Date/Time Value 01/26/2023 1838 Positive Group B Strep PCR (no units) Date/Time Value 02/26/2023 1337 Negative for Group B Streptococcus by PCR. HBsAg (no units) Date/Time Value 12/25/2022 1014 Negative HIV 12 Combo (Ag/Ab) (no units) Date/Time Value 12/25/2022 1014 Nonreactive Neisseria gonorrhoeae (GC) (no units) Date/Time Value 01/26/2023 1837 Negative for Neisseria gonorrhoeae by amplification Syphilis Total Screen (no units) Date/Time Value 12/25/2022 1014 Nonreactive Glucose Scrn, Preg (mg/dL) Date/Time Value 12/25/2022 1014 112 Delivery Plan: Induction Order completed and includes: Open Standing Orders None Induction Order Details None Electronic Informed Consent completed: Yes SIGNATURE: Yeimy Sy MD DATE: March 05, 2023 TIME: 1:14 PM [facility] encounter[facility] Miscellaneous Notes* Quick Notes - Yeimy Sy MD - 03/05/2023 1:13 PM EST Feeling good overall. Baby is active. Labor precautions given. ACTIVE PROBLEM LIST Supervision of High Risk in Second Trimester [place] (Advanced Maternal Age) Multigravida 35+, Second Trimester Anemia During in Third Trimester Threatened Labor, Third Trimester ' documented in this encounterSum[facility]12-[facility]23 Miscellaneous Notes* Quick Notes - Yeimy Sy MD - 02/26/2023 1:31 PM EST Will repeat gbs today. Favorable exam. ACTIVE PROBLEM LIST Supervision of High Risk in Second Trimester [place] (Advanced Maternal Age) Multigravida 35+, Second Trimester Anemia During in Third Trimester Threatened Labor, Third Trimester documented in this encounterSum[facility]12-[facility] Nurse Note* Janice Robert Ma - 02/26/2023 1:20 PM EST [place] Pt is 36w3d weeks . Do you have movement? Active baby Bleeding? No Fluid leakage? No Contractions? No contractions Are you having pain? No = 0 (pain 0 on a scale of 0-10) Janice Robert Ma documented in this encounterSum[facility]11-22-2023 Miscellaneous Notes* Quick Notes - Yeimy Sy MD - 02/13/2023 9:44 AM EST Feeling ready. Gbs next visit. Rsv today. ACTIVE PROBLEM LIST Supervision of High Risk in Second Trimester [place] (Advanced Maternal Age) Multigravida 35+, Second Trimester Anemia During in Third Trimester Threatened Labor, Third Trimester 32 Weeks Gestation of documented in this encounterSum[facility]11-07-2023 Miscellaneous Notes* Quick Notes - Yeimy Sy MD - 01/29/2023 1:55 PM EST Pt was seen at and obs overnight for contractions. Was d/c home on Saturday. Did NOT get steroids. Has continued to have contractions, not frequent, but she can have more than 5 in an hour and then the resolve, then can come back. Us today 41%. Will check ve now. No change from admission. ACTIVE PROBLEM LIST Supervision of High Risk in Second Trimester [place] (Advanced Maternal Age) Multigravida 35+, Second Trimester Anemia During in Third Trimester Threatened Labor, Third Trimester 32 Weeks Gestation of documented in this encounterSum[facility]11-[facility] History of Past illness Narrative* Problem Noted Date Diagnosed Date Resolved Date Threatened labor, antepartum 01/27/2023 01/27/2023 documented as of this encounter (statuses as of 01/30/2023) [facility]11-05-[facility] History of Past illness Narrative* Problem Noted Date Diagnosed Date Resolved Date Threatened labor, antepartum 01/27/2023 01/27/2023 documented as of this encounter (statuses as of 01/30/2023) [address]05-2023 History of Past illness Narrative* Problem Noted Date Diagnosed Date Resolved Date Threatened labor, antepartum 01/27/2023 01/27/2023 documented as of this encounter (statuses as of 02/13/2023) [address]05-2023 History of Past illness Narrative* Problem Noted Date Diagnosed Date Resolved Date Threatened labor, antepartum 01/27/2023 01/27/2023 32 weeks gestation of 01/27/2023 02/26/2023 documented as of this encounter (statuses as of 02/26/2023) [address]05-2023 History of Past illness Narrative* Problem Noted Date Diagnosed Date Resolved Date Threatened labor, antepartum 01/27/2023 01/27/2023 32 weeks gestation of 01/27/2023 02/26/2023 documented as of this encounter (statuses as of 03/06/2023) [facility] History of Past illness Narrative* Problem Noted Date Diagnosed Date Resolved Date Threatened labor, antepartum 01/27/2023 01/27/2023 32 weeks gestation of 01/27/2023 02/26/2023 documented as of this encounter (statuses as of 03/12/2023) [facility]11-04-2023 NoteHNO ID: [id number] Author: Taty Pascal RN Service: Nursing Author Type: Registered Nurse Type: Procedures Filed: 01/26/2023 6:24 PM Note Text: Attestation signed by April Samson MD at 01/26/2023 11:49 PM Cat 1 tracing OBSTETRICS NST SUMMARY SERVICE DATE: January 26, 2023 The patient is a 37 year old female, , who is at 32w0d with an SEUN of 03/23/2023, by Last Menstrual Period dating method. NST OBJECTIVE FINDINGS PER NURSE: Start Time: 1755 (01/26/231819 : Taty Pascal RN) Complete Time: 1819 (01/26/231819 : Taty Pascal RN) Indications: Labor (01/26/231819 : Taty Pascal, DOMINGUEZ) Patient Reason For: to check baby (01/26/231819 : Taty Pascal, DOMINGUEZ) NST Explanation: Procedure Explained;Monitor Explained;Verbalizes Understanding (01/26/231819 : Taty Pascal RN) Acoustic Stimulator: No (01/26/231819 : Taty Pascal RN) Interventions: MONITORING/ASSESSMENT: Baseline: 135 bpm (01/26/231819 : Taty Pascal RN) Variability: Moderate (6-25 bpm) (01/26/231819 : Taty Pascal RN) Accelerations: Present (01/26/231819 : Taty Pascal RN) Decelerations: Decelerations: None (01/26/231819 : Taty Pascal RN) Contractions: Regular (01/26/231819 : Taty Pascal RN) Frequency: 2-3 (01/26/231819 : Taty Pascal RN) Above information forwarded to dr samson (01/26/231819 : Taty Pascal RN) for final review and interpretation. SIGNATURE: Taty Pascal RN PATIENT NAME: Marina Frias DATE: January 26, 2023 TIME: 6:24 [facility]11-01-2023 Miscellaneous Notes* Telephone Encounter - Kelsea Matos RN - 01/23/2023 11:46 AM EDT [facility] [employer] order for a breast pump for Dr Sy to sign and aware we will fax back once this is signed. Kelsea Matos RN * Telephone Encounter - Kelsea Matos RN - 01/23/2023 11:31 AM EDT Darrell, from [employer], l/m that they received a breast pump request from patient and confirming pt is seeing Dr Sy for . Call back # [phone] reference # [id number]. Kelsea Matos RN documented in this encounterSum[facility]10-24-2023 Miscellaneous Notes* Quick Notes - Yeimy Sy MD - 01/15/2023 3:38 PM EDT Consent today. No interest in a larc at this time. Has had the iud in the past and liked that, but will hold off for now. H/O fast labor/delivery. Pushed for about 20min and total labor was about 10 hours at max. Measuring a little small for the first time will check us next visit. ACTIVE PROBLEM LIST Supervision of High Risk in Second Trimester [place] (Advanced Maternal Age) Multigravida 35+, Second Trimester Anemia During in Third Trimester documented in this encounter[facility] Nurse Note* Magda Fraire MA - 12/25/2022 10:58 AM EDT Patient is identified by name and date of : Yes Patient is older than 6 months of age: Yes Patient (or patient's parent) denies a severe (life-threatening) allergy to eggs or any vaccine component or to a previous dose of influenza vaccine: Yes If receiving Fluvirin, denies allergy to thimerosol, polymixin or neomycin: Yes If receiving Fluzone, denies allergy to gelatin or formaldehyde: Yes Patient is afebrile and not moderately or severely ill: Yes Patient has no history of Guillain-[place] Syndrome (a severe paralytic illness): Yes VIS sheet provided: Yes [facility] for details of immunizations administered today. Provider Dr. Yeimy Sy was present in office at time of injection. Magda Fraire MA * Janice Robert Ma - 12/25/2022 10:24 AM EDT Robv Pt is 27w3d weeks . Do you have movement? Active baby Bleeding? No Fluid leakage? No Contractions? No contractions Are you having pain? No = 0 (pain 0 on a scale of 0-10) Janice Robert Ma documented in this encounterSum[facility]10-03-2023 Miscellaneous Notes* Quick Notes - Yeimy Sy MD - 12/25/2022 10:43 AM EDT Did one hour today. Did all blood work today. Tdap and flu shot today. Breast pump and peds discussed. Pt rh positive. ACTIVE PROBLEM LIST Supervision of High Risk in Second Trimester [place] (Advanced Maternal Age) Multigravida 35+, Second Trimester documented in this encounterSum[facility]09-11-2023 Miscellaneous Notes* Telephone Encounter - Cynthia Weiss LPN - 12/03/2022 9:34 AM EDT Sending [employer] message with information per patient request. Cynthia Weiss LPN * Telephone Encounter - Dayna Telles MD - 12/03/2022 9:20 AM EDT Comes up as not covered by insurance, [facility] daily, Dayna Telles MD documented in this encounterSum[facility]09-09-2023 Miscellaneous Notes* Addendum Note - Yeimy Sy MD - 12/01/2022 2:06 PM EDTAddended by: YEIMY SY on: 12/01/2022 02:06 PM Modules accepted: Orders documented in this encounterSumma Health [facility]08-28-2023 Miscellaneous Notes* Quick Notes - Yeimy Sy MD - 11/19/2022 1:07 PM EDT Has been having bh, not sure the cause. No change in d/c. Has rene mcdonald mostly at night, then will resolve, then come again, but can be about 3 in one hour. Will monitor, plan ffn if they persist/get worse. ACTIVE PROBLEM LIST Supervision of High Risk in Second Trimester [place] (Advanced Maternal Age) Multigravida 35+, Second Trimester documented in this encounterSumma [facility]08-28-2023 Nurse Note* Janice Robert Ma - 11/19/2022 1:00 PM EDT Robv Pt is 22w2d weeks . Do you have movement? Active baby Bleeding? No Fluid leakage? No Contractions? No contractions Are you having pain? No = 0 (pain 0 on a scale of 0-10) Janice Robert Ma documented in this encounterSumma [facility]08-02-2023 Miscellaneous Notes* Quick Notes - Yeimy Sy MD - 10/24/2022 2:37 PM EDT Us today ehsan, having a boy! Planning circumcision. Induced with her first baby, had a 9 hour labor start to finish. Labs in careeverywhere, declines afp. ACTIVE PROBLEM LIST Supervision of High Risk in Second Trimester [place] (Advanced Maternal Age) Multigravida 35+, Second Trimester documented in this encounterSumma [facility]07-05-2023 Miscellaneous Notes* Quick Notes - Yeimy Sy MD - 09/26/2022 4:52 PM EDT documented in this encounterSum[facility]Eval[facility] note* Diagnosis Supervision of high risk in second trimester- Primary Unspecified high-risk documented in this encounter [facility]* Diagnosis 18 weeks gestation of - Primary state, incidental documented in this encounter [facility]* Diagnosis Encounter for anatomic survey- Primary Supervision of high risk in second trimester Unspecified high-risk Multigravida of advanced maternal age in second trimester 18 weeks gestation of state, incidental [facility] Diagnosis Supervision of high risk in second trimester- Primary Unspecified high-risk 22 weeks gestation of state, incidental [facility]* Diagnosis Need for influenza vaccination- Primary Need for prophylactic vaccination and inoculation against influenza 27 weeks gestation of state, incidental documented in this encounter [facility]* Diagnosis Supervision of high risk in third trimester- Primary Unspecified high-risk Anemia during in third trimester documented in this encounter [facility]* Diagnosis Encounter for ultrasound to check growth- Primary Encounter for routine screening for malformation using ultrasonics Supervision of high risk in third trimester Unspecified high-risk Uterine size date discrepancy, third trimester 32 weeks gestation of state, incidental documented in this encounter [facility]* Diagnosis 32 weeks gestation of - Primary state, incidental documented in this encounter [facility]* Diagnosis Supervision of high risk in third trimester- Primary Unspecified high-risk 34 weeks gestation of state, incidental documented in this encounter [facility]* Diagnosis 36 weeks gestation of - Primary state, incidental [facility]* Diagnosis Supervision of high risk in third trimester- Primary Unspecified high-risk [facility]* Diagnosis Encounter for gynecological examination without abnormal finding- Primary Routine gynecological examination care and examination of lactating mother documented in this encounter [facility] noteNo assessment information availableBlWhite County Memorial [facility] Services Work Phone: Reason for referral (narrative)* Diagnostic Procedure Only (Routine) - Authorized Specialty Diagnoses / Procedures Referred By Jonatan quach Referred To Contact [facility] Diagnoses Supervision of high risk in third trimester Procedures OBSTETRIC ULTRASOUND WHI US PREG UTERUS AFTER 1ST TRIMEST GESTATION Yeimy Sy MD [address] [place] [address] [facility] [address] [place] [address] Referral ID Status Reason Start Date Expiration Date Visits Requested Visits Authorized [id number] Authorized Auto-Generat ed Referral 3 01/15/2024 1 1 [facility] CampusReason for referral (narrative)No reason for referral information availableTrinchera Medical Services Work Phone: Summary Purpose Family History No Family History Records Found Relationship Condition Age at Onset Recorded Date/T lynne father Hypertension Unknown Advance Directives No Advanced Directives Records FoundNo Advanced Directives Records FoundNo Advanced Directives Records FoundNo Advanced Directives Records Found Chief Complaint and Reason for Visit Chief Complaint Admit Date KIDNEY STONES -FLANK PAIN December 23 025 2:55pm Additional Source Comments Source Comments (unrecognize d section and content) In the event this informatio n is protected by the Federal Confidentiality of Alcohol and Drug Abuse Patient Records regulations: The Federal rules restrict any use of the information to criminally investigate or prosecute any alcohol or drug abuse patient.[facility] CampusIn the event this information is protected by the Federal Confidentiality of Alcohol and Drug Abuse Patient Records regulations: The Federal rules restrict any use of the information to criminally investigate or prosecute any alcohol or drug abuse patient.[facility] CampusIn the event this information is protected by the Federal Confidentiality of Alcohol and Drug Abuse Patient Records regulations: The Federal rules restrict any use of the information to criminally investigate or prosecute any alcohol or drug abuse patient.[facility] CampusIn the event this information is protected by the Federal Confidentiality of Alcohol and Drug Abuse Patient Records regulations: The Federal rules restrict any use of the information to criminally investigate or prosecute any alcohol or drug abuse patient.[facility] CampusIn the event this information is protected by the Federal Confidentiality of Alcohol and Drug Abuse Patient Records regulations: The Federal rules restrict any use of the information to criminally investigate or prosecute any alcohol or drug abuse patient.[facility] CampusIn the event this information is protected by the Federal Confidentiality of Alcohol and Drug Abuse Patient Records regulations: The Federal rules restrict any use of the information to criminally investigate or prosecute any alcohol or drug abuse patient.[facility] CampusIn the event this information is protected by the Federal Confidentiality of Alcohol and Drug Abuse Patient Records regulations: The Federal rules restrict any use of the information to criminally investigate or prosecute any alcohol or drug abuse patient.[facility] CampusIn the event this information is protected by the Federal Confidentiality of Alcohol and Drug Abuse Patient Records regulations: The Federal rules restrict any use of the information to criminally investigate or prosecute any alcohol or drug abuse patient.[facility] CampusIn the event this information is protected by the Federal Confidentiality of Alcohol and Drug Abuse Patient Records regulations: The Federal rules restrict any use of the information to criminally investigate or prosecute any alcohol or drug abuse patient.[facility] CampusIn the event this information is protected by the Federal Confidentiality of Alcohol and Drug Abuse Patient Records regulations: The Federal rules restrict any use of the information to criminally investigate or prosecute any alcohol or drug abuse patient.[facility] CampusIn the event this information is protected by the Federal Confidentiality of Alcohol and Drug Abuse Patient Records regulations: The Federal rules restrict any use of the information to criminally investigate or prosecute any alcohol or drug abuse patient.[facility] CampusIn the event this information is protected by the Federal Confidentiality of Alcohol and Drug Abuse Patient Records regulations: The Federal rules restrict any use of the information to criminally investigate or prosecute any alcohol or drug abuse patient.[facility] CampusIn the event this information is protected by the Federal Confidentiality of Alcohol and Drug Abuse Patient Records regulations: The Federal rules restrict any use of the information to criminally investigate or prosecute any alcohol or drug abuse patient.[facility] CampusIn the event this information is protected by the Federal Confidentiality of Alcohol and Drug Abuse Patient Records regulations: The Federal rules restrict any use of the information to criminally investigate or prosecute any alcohol or drug abuse patient.[facility] CampusIn the event this information is protected by the Federal Confidentiality of Alcohol and Drug Abuse Patient Records regulations: The Federal rules restrict any use of the information to criminally investigate or prosecute any alcohol or drug abuse patient.[facility] CampusIn the event this information is protected by the Federal Confidentiality of Alcohol and Drug Abuse Patient Records regulations: The Federal rules restrict any use of the information to criminally investigate or prosecute any alcohol or drug abuse patient.[facility] Reason for Visit (unrecogniz ed section and content) Reason Comments Care Reason Comments [place] Specialty Diagnoses / Procedures Referred By Contac t Referred To Contact [facility] Diagnoses Supervision of high risk in second trimester Procedures OBSTETRIC ULTRASOUND WHI US PREG UTERUS AFTER 1ST TRIMEST GESTATION Yeimy Sy MD [address] [address] [address] Referral ID Status Reason Start Date Expiration Date V isits Requested Visits Authorized [id number] Closed Auto-Generate d Referral 09/26/2022 09/26/2023 1 1 Reason Comments Med Change Request Reason Onset Date Comments Immunizations 12/25/2022 Flu vaccination Reason Comments Question Specialty Diagnoses / Procedures Referred By Contac t Referred To Contact [facility] Diagnoses Supervision of high risk in third trimester Procedures OBSTETRIC ULTRASOUND WHI US PREG UTERUS AFTER 1ST TRIMEST GESTATION Yeimy Sy MD [address] [place] [address] [facility] [address] [place] [address] Referral ID Status Reason Start Date Expiration Date V isits Requested Visits Authorized [id number] Closed Auto-Generate d Referral 01/15/2023 01/15/2024 1 1 Reason Onset Date Comments Population Health Navigation Outreach 03/11/2023 OB/PEDS Reason Comments Routine INFORMATION SOURCE (unrecogn ized section and content) DATE CREATED AUTHOR 10/31/2022 [facility] DATE CREATED AUTHOR AUTHOR'S ORGANIZ ATION 04/22/2023 [facility] DATE CREATED AUTHOR AUTHOR'S ORGANIZ ATION 05/13/2023 [facility] DATE CREATED AUTHOR AUTHOR'S ORGANIZ ATION 12/28/2024 [facility] Care Teams (unrecognized sec tion and content) Team Status: Active Member Role/Relationship Status Dates Dr. Marcello Mejia MD Primary care physician Active Team Status: Inactive Member Role/Relationship Status Dates Dr. Laura Davies MD Attending physician Active Start: December 23, 2024 End: December 23, 2024 Dr. Marcello Mejia MD Primary care physician Active Start: December 23, 2024 End: December 23, 2024 Dr. Marcello Mejia MD Referring Provider Active Start: December 23, 2024 End: December 23, 2024 Goals (unrecognized section and content) Goals may be documented in a n alternate section FOR RECORDS PERTAINING TO PATIENTS WHO ARE OR HAVE BEEN ENROLLED IN A CHEMICAL DEPENDENCY/SUBSTANCEABUSE PROGRAM, SOME INFORMATION MAY BE OMITTED. This clinical summary was aggregated from multiple sources. Caution should be exercised in using it in the provision of clinical care. This summary normalizes information from multiple sources, and as a consequence, information in this document may materially change the coding, format and clinical context of patient data. In addition, data may be omitted in some cases. CLINICAL DECISIONS SHOULD BE BASED ON THE PRIMARY CLINICAL RECORDS. [employer] [facility]. provides no warranty or guarantee of the accuracy or completeness of information in this document.
== END | disposition home or self-care (01) ==
LOC: CT 18:12
PROVIDERS: PCP Family Medicine; Visit Provider Urology
DX: N20.0 Calculus of kidney (principal); R10.A0 Flank pain, unspecified side
CPT/HCPCS: 74176

== ENCOUNTER → 2025-03-04 | Outpatient (CLI) | payer OTHER, SELFPAY ==
[2025-03-04 11:20] LABS: Calcium 9.5 mg/dL (7.6-11.0)
== END | disposition home or self-care (01) ==
LOC: MTLAB 09:02
PROVIDERS: PCP Family Medicine; Referring Provider Urology; Visit Provider Urology
DX: R82.994 Hypercalciuria (principal)
CPT/HCPCS: 36415; 82310